=== PATIENT | male | born 1950 | race Caucasian/White ===

== ENCOUNTER → 2017-12-29 | Outpatient (CLI) | payer MEDICARE, OTHER ==
[2017-12-29 10:14] LABS: Basophils % (A) 0 %; Eosinophils # (A) 0.3 k/uL (0-0.7); Eosinophils % (A) 2 %; HCT 42.5 % (39.0-53.0); HGB 14.9 gm/dL (13.0-17.5); Lymphocytes # (A) 2.3 k/uL (1.0-4.8); Lymphocytes % (A) 19 %; MCH 30.1 pg (25.0-35.0); Monocytes % (A) 8 %; Neutrophils # (A) 8.2 k/uL (1.3-7.7); Neutrophils % (A) 68 %; Platelet Count 379 k/uL (150-450); RBC 4.95 m/uL (4.30-5.90); RDW 13.6 % (11.5-15.5); WBC 12.2 k/uL (3.8-10.6)
[2017-12-29 10:18] LABS: Appearance,Urine Clear (Clear); Bilirubin,Urine Negative (Negative); Blood,Urine Negative (Negative); Color,Urine Light Yellow; Glucose,Urine (UA) Negative (Negative); Ketones,Urine Negative (Negative); Leukocyte Esterase,Urine Negative (Negative); Nitrite,Urine Negative (Negative); PH, Urine 7.5 (5.0-8.0); Protein,Urine Negative (Negative); Specific Gravity,Urine 1.003 (1.001-1.035); Urobilinogen,Urine <2.0 mg/dL (<2.0)
[2017-12-29 10:27] LABS: ALT 36 U/L (21-72); AST 26 U/L (17-59); Albumin 4.4 g/dL (3.5-5.0); Alkaline Phosphatase 85 U/L (38-126); Anion Gap 16 mmol/L; Blood Urea Nitrogen 11 mg/dL (9-20); Calcium 10.3 mg/dL (8.4-10.2); Carbon Dioxide 29 mmol/L (22-30); Chloride 99 mmol/L (98-107); Glucose 107 mg/dL (74-99); Sodium 144 mmol/L (137-145); Total Bilirubin 0.4 mg/dL (0.2-1.3); Total Protein 6.9 g/dL (6.3-8.2)
--- NOTE | 2017-12-29 10:50 | XR ---
EXAMINATION TYPE: XR chest 2V DATE OF EXAM: 12/29/2017 COMPARISON: NONE HISTORY: Shortness of breath TECHNIQUE: Frontal and lateral views of the chest are obtained. FINDINGS: Scattered senescent parenchymal changes noted. Hyperinflation compatible with COPD. No evidence for infiltrate. No evidence for atelectasis. Heart size is stable. Mediastinal structures are stable and grossly unremarkable. No evidence for hilar prominence. Degenerative changes dorsal spine. IMPRESSION: 1. No evidence for acute pulmonary disease.
== END | disposition home or self-care (01) ==
LOC: LABWHC1 09:28
PROVIDERS: ATTEND Urology
DX: Z01.818 Encounter for other preprocedural examination (principal); R94.31 Abnormal electrocardiogram [ECG] [EKG]; I45.10 Unspecified right bundle-branch block; C64.1 Malignant neoplasm of right kidney, except renal pelvis; R35.0 Frequency of micturition; I10 Essential (primary) hypertension; R06.02 Shortness of breath; Z79.899 Other long term (current) drug therapy; Z01.812 Encounter for preprocedural laboratory examination
CPT/HCPCS: 36415; 71046; 80053; 81003; 85025; 87086; 93005

== ENCOUNTER 2018-01-05 05:43 | Inpatient (IN) | payer MEDICARE, OTHER ==
[2017-12-28 14:40] VITALS: BMI 28.8
[~2018-01-05 05:43] MED LIST: Pre Op ABX Message 1 EACH MISC MISCELLANE ONE
[2018-01-05] MEDS ORDERED: fentaNYL (PF) 50 MCG/ML 2 ML AMP IV PRN (05:49)
[2018-01-05] MEDS ORDERED: MIDAZOLAM 2 MG/2 ML VIAL IV PRN (05:49)
[2018-01-05] MEDS ORDERED: ONDANSETRON 4 MG/2 ML VIAL IVP ONE (05:49)
[2018-01-05] MEDS ORDERED: DEXAMETHASONE SOD PHOSPHATE 10 MG/ML 1 ML VIAL IV ONE (05:49)
[2018-01-05] MEDS: LACTATED RINGERS 1,000 ML IV SCH (06:47)
[2018-01-05] MEDS ORDERED: LIDOCAINE 1% 20 ML VIAL (10MG/ML) FOR IV START INTRADERMA ONE (06:47)
[2018-01-05] MEDS ORDERED: NALOXONE 0.4 MG/ML 1 ML VIAL IV PRN ×2 (07:20→07:22)
[2018-01-05] MEDS ORDERED: diphenhydrAMINE 50 MG/ML 1 ML VIAL IVP PRN (07:22)
[2018-01-05] MEDS ORDERED: ONDANSETRON 4 MG/2 ML VIAL IVP PRN (07:22)
[2018-01-05] MEDS ORDERED: GLYCOPYRROLATE 0.2 MG/ML 2 ML VIAL ONE (07:38)
[2018-01-05] MEDS ORDERED: LIDOCAINE 1% INJ 10MG/ML (20 ML MDV) ONE (07:38)
[2018-01-05] MEDS ORDERED: PROPOFOL 10 MG/ML 20 ML VIAL IV ONE (07:38)
[2018-01-05] MEDS ORDERED: fentaNYL (PF) 50 MCG/ML 2 ML AMP ONE (07:38)
[2018-01-05] MEDS ORDERED: NEOSTIGMINE 1 MG/ML 10 ML VIAL ONE (07:38)
[2018-01-05] MEDS ORDERED: SUCCINYLCHOLINE CHLORIDE 100 MG/5 ML SYR IV ONE (07:38)
[2018-01-05] MEDS ORDERED: VECURONIUM 10 MG VIAL IV ONE (07:38)
[2018-01-05] MEDS ORDERED: MIDAZOLAM 2 MG/2 ML VIAL ONE (07:38)
[2018-01-05] MEDS ORDERED: BUPIVACAINE (PF) 0.5% 31.3 ML, fentaNYL (PF) 625 MCG in SODIUM CHLORIDE 0.9% 206 ML EPIDURAL PRN (08:00)
[2018-01-05] MEDS ORDERED: GELATIN SPONGE,ABSORB (SMALL) 1 EACH SPONGE TOPICAL ONE (09:15)
[2018-01-05] MEDS ORDERED: ALBUTEROL NEBULIZED 2.5 MG/3 ML INHALATION PRN (09:38)
--- NOTE | 2018-01-05 09:48 | P.OP ---
Date of Procedure: 01/05/18 Preoperative Diagnosis: Right renal mass, probable renal cell carcinoma Postoperative Diagnosis: Same Procedure(s) Performed: Right radical nephrectomy Anesthesia: GETA, epidural Surgeon: Daniel Shetty [employer] Manager #1: Grzegorz Bartlett Estimated Blood Loss (ml): 250 Pathology: other (Kidney) Condition: stable Disposition: PACU Indications for Procedure: The patient is a 67-year-old gentleman who was evaluated with a computed tomography scan for abdominal pain. He is found to have a 6-7 cm right renal mass. The mass was consistent with a renal cell carcinoma. Due to the size and depth of the mass was recommended a radical nephrectomy. He he chose an open radical nephrectomy over laparoscopic. He chose evident done here rather than referral. He come for this procedure the risks and complications of an outlined Description of Procedure: Patient is brought to the operating suite he is given a general endotracheal anesthesia. A Lucio catheters introduced sterilely. A sterile prep and drape was administered. A right chevron incision is made. The rectus and oblique fascias are opened up. The peritoneum was opened. Retraction with the Bookwalter retractors made. The liver is inspected and shows a fatty liver but otherwise was unremarkable. The gallbladder is unremarkable. Incised the attachment of the colon and the peritoneum reflected medially. I do a Misty maneuver and reflect the duodenum medially. I exposed the vein clean the connective tissue off it. The gonadal vein is taken between 2-0 silk ties. I eventually identify the right renal vein. It is freed of adventitial around it. There are 2 renal arteries posterior to the renal vein which are identified and tied with 2-0 silk ties. I then take the renal vein between 2-0 silk ties and suture ligatures and transected. I then remove the lymph node tissue and attachments off the body wall. I move inferiorly I then take the ureter between hemoclips. Taken without gonadal vein between hemoclips. I move around the inferior portion of the kidney and drug's fascia. I freed the kidney and drug's fascia off the posterior bladder wall the lateral bladder wall. Then incised the peritoneum on the superior aspect of the kidney a. I dissect down through the subcutaneous tissue using hemoclips and ties and electrocautery to control any bleeding. At the apex of the kidney and Gerota's fascia off the vena cava the body wall and the liver. The adrenal gland comes with the specimen. The specimens delivered from the wound. Blood loss about 250 mL. I inspect the bed of the adrenal gland there is some mild oozing which and Gelfoam was placed against in the control this. At the end of the procedure blood loss about 250 mL. I'll allow the bowel to feel the right upper quadrant. The wound was closed with 3 layers of #1 Vicryl. The skin is stapled the patient awake and returned recovery room good condition. He tolerated the procedure well.
[2018-01-05] MEDS: BUPIVACAINE (PF) 0.5% 31.3 ML, fentaNYL (PF) 625 MCG in SODIUM CHLORIDE 0.9% 206 ML EPIDURAL PRN (10:32)
[2018-01-05 14:15] LABS: Calcium 9.7 mg/dL (8.4-10.2); Potassium 3.8 mmol/L (3.5-5.1)
[2018-01-05 14:19] LABS: HCT 41.3 % (39.0-53.0); HGB 14.1 gm/dL (13.0-17.5); MCHC 34.1 g/dL (31.0-37.0); MCV 88.1 fL (80.0-100.0); Mean Platelet Volume 7.1; Platelet Count 399 k/uL (150-450); RBC 4.69 m/uL (4.30-5.90); RDW 13.8 % (11.5-15.5); WBC 24.8 k/uL (3.8-10.6)
[2018-01-05] MEDS: POTASSIUM CHLORIDE ER 10 MEQ TAB.ER.PRT PO SCH (16:51)
[2018-01-05] MEDS: GABAPENTIN 300 MG CAP PO SCH ×2 (16:51→21:20)
[2018-01-05] MEDS: DEXTROSE 5%-0.45% NACL 1,000 ML IV SCH ×3 (16:51→21:20)
[2018-01-05] MEDS: BACLOFEN 10 MG TAB PO SCH ×2 (16:51→21:20)
[2018-01-05] MEDS ORDERED: ALLOPURINOL 100 MG TAB PO SCH (21:00)
[2018-01-05] MEDS: traZODone HCL 100 MG TAB PO SCH (21:20)
[2018-01-06] MEDS: LACTATED RINGERS 1,000 ML IV SCH (05:07)
[2018-01-06] MEDS: BUPIVACAINE (PF) 0.5% 31.3 ML, fentaNYL (PF) 625 MCG in SODIUM CHLORIDE 0.9% 206 ML EPIDURAL PRN (07:43)
[2018-01-06] MEDS: amLODIPine 10 MG TAB PO SCH (08:00)
[2018-01-06] MEDS: ATENOLOL 50 MG TAB PO SCH (08:00)
[2018-01-06] MEDS: FLUoxetine HCL 20 MG CAP PO SCH (08:00)
[2018-01-06] MEDS: BACLOFEN 10 MG TAB PO SCH ×3 (08:00→20:43)
[2018-01-06] MEDS: ALLOPURINOL 300 MG TAB PO SCH (08:00)
[2018-01-06] MEDS: POTASSIUM CHLORIDE ER 10 MEQ TAB.ER.PRT PO SCH ×2 (08:00→17:13)
[2018-01-06] MEDS: THIAMINE 100 MG TAB PO SCH (08:00)
[2018-01-06] MEDS: HYDROCHLOROTHIAZIDE 50 MG TAB PO SCH (08:00)
[2018-01-06] MEDS: PANTOPRAZOLE 40 MG TABLET PO SCH (08:00)
[2018-01-06] MEDS: GABAPENTIN 300 MG CAP PO SCH ×3 (08:00→20:43)
--- NOTE | 2018-01-06 08:38 | P.PN ---
Progress Note - Text Progress Note Date: 01/06/18 The patient is comfortable and afebrile. His blood pressure is 123/64. He denies any cough or shortness of breath and is using incentive spirometry as directed. He says that he is hungry and would like to try eating. His urine is clear. The patient's urethral catheter was removed approximately 15 minutes ago. Chest-clear bilaterally Cardiac-regular rhythm-no murmur Abdomen-incision is dry and uninflamed. Week bowel sounds are present. Impression: The patient appears to be doing very well 1 day following right radical nephrectomy. His epidural will remain in place and hopefully he will be able to void without difficulty. Bladder scans will be done to ensure this. He is aware that if he is unable to void a catheter will need to be reinserted. The patient will be tried on clear liquids and if he tolerates this he may be able to be advanced his diet later in the day.
[2018-01-06] MEDS: DEXTROSE 5%-0.45% NACL 1,000 ML IV SCH ×3 (11:56→18:25)
--- NOTE | 2018-01-06 13:25 | P.PAINPG ---
Subjective Progress Note Date: 01/06/18 Principal diagnosis: Acute postoperative pain Postoperative day # 1 status post right nephrectomy. epidural catheter placement for postoperative analgesia, patient doing well epidural site okay, patient currently on combination of epidural infusion solution of bupivacaine 0.0625% and fentanyl 2.5 micrograms per mL the infusion rate at 8 ml per hour , patient had no motor deficit epidural site okay, pain adequately controlled, VAS 0/10 at rest and 0/10 with movement. No supplemental pain medications given , we'll continue the current management Objective - Vital Signs Vital signs: Vital Signs Temp 98.0 F 01/06/18 07:00 Pulse 65 01/06/18 07:00 Resp 16 01/06/18 07:00 BP 123/64 01/06/18 07:00 Pulse Ox 93 L 01/06/18 07:00 Intake & Output 01/05/18 01/06/18 01/06/18 18:59 06:59 18:59 Intake Total 1924.1 Output Total 530 1500 700 Balance 1394.1 -1500 -700 Weight 83.461 kg 83.461 kg Intake: IV 1574.1 Intake, IV Titration 350 Amount Dextrose 5%-0.45% NaCl 1, 350 000 ml @ 125 mls/hr IV . Q8H [facility] Rx#:[id number] Output: Urine 280 1500 700 Uretheral (Lucio) 700 Stool 0 Estimated Blood Loss 250 Other: Voiding Method Indwelling Catheter Indwelling Catheter Indwelling Catheter - Labs CBC & Chem 7: 01/05/18 13:26 01/05/18 13:26 Labs: Abnormal Lab Results - Last 24 Hours (Table) 01/05/18 01/05/18 Range/Units 13:26 13:26 WBC 24.8 H (3.8-10.6) k/uL BUN 22 H (9-20) mg/dL Creatinine 1.30 H (0.66-1.25) mg/dL Glucose 136 H (74-99) mg/dL Assessment and Plan Assessment: Acute post operative pain Plan: Continue with current settings. Ambulate as tolerated with assistance PQRS Measure Charge Sheet PQRS Narrative: Smoking Status Former smoker Blood Pressure [Right Arm 123/64 Supine] Pain Intensity [Lower Back] 0 Pain Intensity 0 Pain Scale Used [Lower Back] Numeric (1 - 10) Pain Scale Used Numeric (1 - 10) Scale Used Numeric (1 - 10) Home Medications: Ambulatory Orders Albuterol Inhaler [Ventolin Hfa Inhaler] 1 - 2 puff INHALATION RT-QID PRN Allopurinol [Zyloprim] 100 mg PO BID 12/28/17 Allopurinol [Zyloprim] 300 mg PO DAILY 12/28/17 Atenolol [Tenormin] 50 mg PO DAILY 12/28/17 Baclofen [Lioresal] 10 mg PO TID 12/28/17 Cetirizine HCl [Zyrtec] 10 mg PO DAILY 12/28/17 FLUoxetine HCL [PROzac] 20 mg PO DAILY 12/28/17 Gabapentin [Neurontin] 300 mg PO TID 12/28/17 HYDROcodone/APAP 5-325MG [[place] 5-325] 1 tab PO Q4H PRN 12/28/17 Hydrochlorothiazide [Hydrodiuril] 50 mg PO DAILY 12/28/17 Metabolism Support 250 mg PO DAILY 12/28/17 Multivitamins, Thera [Multivitamin (formulary)] 1 tab PO DAILY 12/28/17 Omeprazole [PriLOSEC] 20 mg PO AC-BRKFST 12/28/17 Potassium Chloride ER [K-Dur 10] 10 meq PO BID 12/28/17 Rosuvastatin [Crestor] 10 mg PO DAILY 12/28/17 Thiamine HCl [Vitamin B-1] 100 mg PO DAILY 12/28/17 amLODIPine [Norvasc] 10 mg PO DAILY 12/28/17 traZODone HCL [Desyrel] 100 mg PO HS 12/28/17 Controlled Substance Measures - Controlled Substance Measures Is patient prescribed a controlled substance at discharge?: No If prescribed controlled substance>3 days was MAPS reviewed?: No When asked, does pt state using other controlled substances?: No
[2018-01-06] MEDS: traZODone HCL 100 MG TAB PO SCH (20:43)
[2018-01-06 23:37] LABS: Glucose,Whole Blood 131 mg/dL (75-99)
[2018-01-07] MEDS: DEXTROSE 5%-0.45% NACL 1,000 ML IV SCH ×2 (00:15→09:45)
[2018-01-07] MEDS: LACTATED RINGERS 1,000 ML IV SCH (00:16)
[2018-01-07 01:28] LABS: Glucose,Whole Blood 212 mg/dL (75-99)
[2018-01-07] MEDS: GABAPENTIN 300 MG CAP PO SCH ×3 (08:35→20:38)
[2018-01-07] MEDS: amLODIPine 10 MG TAB PO SCH (08:36)
[2018-01-07] MEDS: ATENOLOL 50 MG TAB PO SCH (08:36)
[2018-01-07] MEDS: POTASSIUM CHLORIDE ER 10 MEQ TAB.ER.PRT PO SCH ×2 (08:36→17:31)
[2018-01-07] MEDS: ALLOPURINOL 300 MG TAB PO SCH (08:36)
[2018-01-07] MEDS: BACLOFEN 10 MG TAB PO SCH ×3 (08:36→20:38)
[2018-01-07] MEDS: PANTOPRAZOLE 40 MG TABLET PO SCH (08:36)
[2018-01-07] MEDS: THIAMINE 100 MG TAB PO SCH (08:38)
[2018-01-07] MEDS: HYDROCHLOROTHIAZIDE 50 MG TAB PO SCH (08:38)
[2018-01-07] MEDS: FLUoxetine HCL 20 MG CAP PO SCH (08:38)
[2018-01-07] MEDS ORDERED: Acetaminophen-Codeine 300-30mg TAB PO PRN (08:59)
--- NOTE | 2018-01-07 08:59 | P.PN ---
Progress Note - Text Progress Note Date: 01/07/18 The patient is afebrile and normotensive. His epidural catheter was stopped early this morning as he was slightly confused and says that he was having weakness in his legs. Since then he has remained fairly comfortable. He is tolerating clear liquids and would like to begin a regular diet. He has no shortness of breath. He is passing flatus. He is voiding without difficulty. Abdomen: Incision is uninflamed. Impression: The patient continues to improve following his right radical nephrectomy. His diet will be advanced and his epidural catheter will be removed. He will probably be discharged in the morning.
[2018-01-07] MEDS: traZODone HCL 100 MG TAB PO SCH (20:36)
[2018-01-07 20:53] LABS: Hemoglobin A1C 6.1 % (4.0-6.0)
[2018-01-08] MEDS: LACTATED RINGERS 1,000 ML IV SCH (05:24)
--- NOTE | 2018-01-08 07:41 | P.DS ---
Providers Date of admission: 01/05/18 05:43 Expected date of discharge: 01/08/18 Attending physician: Daniel Shetty Primary care physician: Khanh Briggs [facility] Course: The patient is a 67-year-old male with a large right upper pole renal mass consistent with renal cell carcinoma. The patient was admitted for the purpose of right radical nephrectomy. The procedure was performed on the date of admission under combined general and epidural anesthesia. The patient had no problems intraoperatively and remained comfortable with the epidural catheter postop. His urethral catheter was removed on the first day postop and the epidural catheter was removed on the second day postop. At the time of discharge the patient was comfortable on oral analgesics. He was fully ambulatory and tolerating a regular diet and passing flatus and bowel movements. His incision appeared to be healing well. The patient's random glucose was elevated between 160 and 212 postoperatively. Hemoglobin A1c was 6.1. It was recommended that the patient discuss the possibility of diabetes with Dr. Briggs when he is seen by him on 01/12. Procedures: Right radical nephrectomy for Patient Condition at Discharge: Good Plan - Discharge Summary Discharge Rx Participant: No New Discharge Prescriptions: No Action Albuterol Inhaler [Ventolin Hfa Inhaler] 1 - 2 puff INHALATION RT-QID PRN PRN Reason: COPD Allopurinol [Zyloprim] 300 mg PO DAILY Allopurinol [Zyloprim] 100 mg PO BID amLODIPine [Norvasc] 10 mg PO DAILY Atenolol [Tenormin] 50 mg PO DAILY Baclofen [Lioresal] 10 mg PO TID Cetirizine HCl [Zyrtec] 10 mg PO DAILY FLUoxetine HCL [PROzac] 20 mg PO DAILY Gabapentin [Neurontin] 300 mg PO TID Hydrochlorothiazide [Hydrodiuril] 50 mg PO DAILY HYDROcodone/APAP 5-325MG [[place] 5-325] 1 tab PO Q4H PRN PRN Reason: Pain Metabolism Support 250 mg PO DAILY Multivitamins, Thera [Multivitamin (formulary)] 1 tab PO DAILY Omeprazole [PriLOSEC] 20 mg PO AC-BRKFST Potassium Chloride ER [K-Dur 10] 10 meq PO BID Rosuvastatin [Crestor] 10 mg PO DAILY Thiamine HCl [Vitamin B-1] 100 mg PO DAILY traZODone HCL [Desyrel] 100 mg PO HS Discharge Medication List Albuterol Inhaler [Ventolin Hfa Inhaler] 1 - 2 puff INHALATION RT-QID PRN [History] Allopurinol [Zyloprim] 100 mg PO BID 12/28/17 [History] Allopurinol [Zyloprim] 300 mg PO DAILY 12/28/17 [History] Atenolol [Tenormin] 50 mg PO DAILY 12/28/17 [History] Baclofen [Lioresal] 10 mg PO TID 12/28/17 [History] Cetirizine HCl [Zyrtec] 10 mg PO DAILY 12/28/17 [History] FLUoxetine HCL [PROzac] 20 mg PO DAILY 12/28/17 [History] Gabapentin [Neurontin] 300 mg PO TID 12/28/17 [History] HYDROcodone/APAP 5-325MG [[place] 5-325] 1 tab PO Q4H PRN 12/28/17 [History] Hydrochlorothiazide [Hydrodiuril] 50 mg PO DAILY 12/28/17 [History] Metabolism Support 250 mg PO DAILY 12/28/17 [History] Multivitamins, Thera [Multivitamin (formulary)] 1 tab PO DAILY 12/28/17 [History ] Omeprazole [PriLOSEC] 20 mg PO AC-BRKFST 12/28/17 [History] Potassium Chloride ER [K-Dur 10] 10 meq PO BID 12/28/17 [History] Rosuvastatin [Crestor] 10 mg PO DAILY 12/28/17 [History] Thiamine HCl [Vitamin B-1] 100 mg PO DAILY 12/28/17 [History] amLODIPine [Norvasc] 10 mg PO DAILY 12/28/17 [History] traZODone HCL [Desyrel] 100 mg PO HS 12/28/17 [History] Follow up Appointment(s)/Referral(s): Daniel Shetty MD [STAFF PHYSICIAN] - 1 Week Discharge Disposition: HOME SELF-CARE Pending Studies Pending Results: The pathology report was pending at the time of discharge.
[2018-01-08 07:48] VITALS: BP 176/79; PULSE 66; TEMP 98.1
[2018-01-08 08:42] VITALS: RESP 16
[2018-01-08] MEDS: GABAPENTIN 300 MG CAP PO SCH (09:03)
[2018-01-08] MEDS: ATENOLOL 50 MG TAB PO SCH (09:03)
[2018-01-08] MEDS: HYDROCHLOROTHIAZIDE 50 MG TAB PO SCH (09:03)
[2018-01-08] MEDS: THIAMINE 100 MG TAB PO SCH (09:03)
[2018-01-08] MEDS: POTASSIUM CHLORIDE ER 10 MEQ TAB.ER.PRT PO SCH (09:04)
[2018-01-08] MEDS: FLUoxetine HCL 20 MG CAP PO SCH (09:04)
[2018-01-08] MEDS: amLODIPine 10 MG TAB PO SCH (09:04)
[2018-01-08] MEDS: ALLOPURINOL 300 MG TAB PO SCH (09:04)
[2018-01-08] MEDS: PANTOPRAZOLE 40 MG TABLET PO SCH (09:04)
[2018-01-08] MEDS: BACLOFEN 10 MG TAB PO SCH (09:04)
[2018-01-08] MEDS: DEXTROSE 5%-0.45% NACL 1,000 ML IV SCH (09:05)
== END 2018-01-08 12:00 | disposition home or self-care (01) | DRG 658 ==
LOC: 2ORMAIN 05:43 → 3SUR 09:49
PROVIDERS: ADMIT Urology; ATTEND Urology
PROC: 0GT30ZZ Resection of Right Adrenal Gland, Open Approach (ICD-10-PCS; 2018-01-05)
PROC: 0TT00ZZ Resection of Right Kidney, Open Approach (ICD-10-PCS; principal; 2018-01-05 07:30)
DX: C64.1 Malignant neoplasm of right kidney, except renal pelvis (principal); J44.9 Chronic obstructive pulmonary disease, unspecified; E11.65 Type 2 diabetes mellitus with hyperglycemia; E78.00 Pure hypercholesterolemia, unspecified; G89.18 Other acute postprocedural pain; E78.5 Hyperlipidemia, unspecified; I10 Essential (primary) hypertension; M19.91 Primary osteoarthritis, unspecified site; K21.9 Gastro-esophageal reflux disease without esophagitis; G47.00 Insomnia, unspecified; Z79.899 Other long term (current) drug therapy; Z87.891 Personal history of nicotine dependence; Z91.018 Allergy to other foods; Z86.010 Personal history of colon polyps; Z83.3 Family history of diabetes mellitus; Z80.0 Family history of malignant neoplasm of digestive organs; Z84.1 Family history of disorders of kidney and ureter
CPT/HCPCS: 80048; 83036; 85027; 86850; 86900; 86901; 88305; 88307; 88341; 88342; 94640

== ENCOUNTER → 2018-07-20 | Outpatient (CLI) | payer MEDICARE, OTHER ==
[2018-07-20 15:50] LABS: Albumin 4.7 g/dL (3.80-4.90); Albumin/Globulin Ratio 2.94 (1.20-2.10); Anion Gap 8.9 mmol/L (4.00-12.00); Calcium 9.6 mg/dL (8.7-10.3); Carbon Dioxide 29.1 mmol/L (21.6-31.8); Globulin 1.6 g/dL (2.1-3.7); Total Bilirubin 0.3 mg/dL (0.3-1.2); Total Protein 6.3 g/dL (6.2-8.2)
--- NOTE | 2018-07-20 16:41 | XR ---
EXAMINATION TYPE: XR chest 2V DATE OF EXAM: 07/20/2018 COMPARISON: 12/29/2017 INDICATION: Renal cancer TECHNIQUE: Frontal and lateral views of the chest are obtained. FINDINGS: The heart size is normal. The pulmonary vasculature is normal. The lungs are clear. Scoliosis is through the thoracic spine. IMPRESSION: 1. No acute pulmonary process.
== END | disposition home or self-care (01) ==
LOC: LABWHC1 09:28
PROVIDERS: ATTEND Urology
DX: C64.9 Malignant neoplasm of unspecified kidney, except renal pelvis (principal)
CPT/HCPCS: 36415; 71046; 80053

== ENCOUNTER → 2018-12-21 | Outpatient (CLI) | payer MEDICARE, OTHER ==
--- NOTE | 2018-12-21 11:08 | MR ---
EXAMINATION TYPE: MR brain wo con DATE OF EXAM: 12/21/2018 COMPARISON: NONE HISTORY: Vertebro-basilar artery syndrome, loss of balance T1-weighted sagittal, T2, FLAIR, and diffusion axial, and T2 coronal coronal views of the brain are s ubmitted. There is no evidence of acute ischemia. The ventricles, basal cisterns, and sulci overlying the conv exities are consistent with the patient's age. There is no mass effect. Sella turcica has a normal appearance. No cerebellopontine angle mass. There are changes of chronic sinusitis. Cerebellar tonsils are low-ly ing in position at the level the foramen magnum. There are a few scattered focal areas of abnormal white matter signal and confluent areas of abnormal white matter signal bilaterally. Focal area of abnormal signal involving the basal ganglia and thala mus may be related to prominent Virchow-John spaces or tiny lacunar infarcts. IMPRESSION: 1. Nonspecific white matter changes correlate for remote microvascular ischemia favored over demyelin ating process. 2. Cerebellar tonsils low-lying in position at the level the foramen magnum. 3. No evidence of acute ischemia.
--- NOTE | 2018-12-21 11:20 | MR ---
EXAMINATION TYPE: MR angio neck wo con DATE OF EXAM: 12/21/2018 COMPARISON: HISTORY: Vertebro-basilar artery syndrome, loss of balance Standard multiplanar, multisequence MRI departmental protocol Multiplanar, multisequence images MRA were acquired. FINDINGS: Exam is limited by motion artifact. Grossly the left vertebral artery is slightly dominant. Vertebrobasilar system is patent. Visualized common carotid arteries are patent. Left carotid bifurcation widely patent. There is atherosclerotic change involving the right carotid bifurcation the proximal 50% stenosis. Re commend follow-up carotid ultrasound given the limitation of the exam and motion artifact. IMPRESSION: Limited exam due to motion demonstrates the vertebrobasilar system patent. There is atherosclerotic c hange right carotid bifurcation. Due to motion artifact assessment is limited. Suspect approximately 50% stenosis. Recommend follow-up carotid ultrasound given limitation of this exam.
== END ==
LOC: RADMRIMAIN 09:53
PROVIDERS: ATTEND Psychiatry & Neurology Neurology
DX: R90.89 Other abnormal findings on diagnostic imaging of central nervous system (principal); R94.02 Abnormal brain scan; I65.21 Occlusion and stenosis of right carotid artery
CPT/HCPCS: 70547; 70551

== ENCOUNTER → 2019-01-16 | Outpatient (CLI) | payer MEDICARE, OTHER ==
--- NOTE | 2019-01-16 15:42 | CT ---
EXAMINATION TYPE: CT abdomen wo con DATE OF EXAM: 01/16/2019 HISTORY: Renal Cancer CT DLP: 454.7 mGycm. Automated Exposure Control for Dose Reduction was Utilized. TECHNIQUE: CT scan of the abdomen is performed without oral or IV contrast. COMPARISON: Outside CT abdomen and pelvis study December 11, 2017 FINDINGS: Within the limitations of a non-contrast study, the following observations are made. LUNG BASES: Linear scarring right middle lobe just above diaphragm is redemonstrated. Coronary artery calcification distal RCA distribution is again seen LIVER/GB: No significant abnormality is appreciated. PANCREAS: No significant abnormality is seen. SPLEEN: No significant abnormality is seen. ADRENALS: No significant abnormality is seen. KIDNEYS: Right kidney is surgically absent. Nephrectomy clips are now present at right renal bed. BOWEL: Normal gas-filled appendix extends superior medially from cecum which is not completely imaged . There is no suspicious small or large bowel dilatation. LYMPH NODES: No greater than 1cm abdominal lymph nodes are appreciated. OSSEOUS STRUCTURES: Moderate disc space narrowing L4-L5 level is present. OTHER: Moderate calcified plaque of the distal aorta extends into branch vessels. IMPRESSION: Interval total right-sided nephrectomy. No suspicious residual or new mass identified.
== END | disposition home or self-care (01) ==
LOC: RADCTMAIN 13:26
PROVIDERS: ATTEND Urology
DX: D41.01 Neoplasm of uncertain behavior of right kidney (principal); Z90.5 Acquired absence of kidney; Z91.018 Allergy to other foods
CPT/HCPCS: 74150

== ENCOUNTER → 2019-01-23 | Outpatient (CLI) | payer MEDICARE, OTHER ==
--- NOTE | 2019-01-23 16:18 | US ---
EXAMINATION TYPE: US carotid duplex BILAT DATE OF EXAM: 01/23/2019 COMPARISON: None CLINICAL HISTORY: 68-year-old male R26.81 Unsteady gait / I65.21 Stenosis. Loss of balance per patien t FINDINGS: EXAM MEASUREMENTS: RIGHT: Peak Systolic Velocity (PSV) cm/sec ----- Right CCA: 74.0 ----- Right ICA: 85.4 ----- Right ECA: 98.0 ICA/CCA ratio: 1.2 RIGHT: End Diastole cm/sec ----- Right CCA: 15.9 ----- Right ICA: 18.4 ----- Right ECA: 21.0 LEFT: Peak Systolic Velocity (PSV) cm/sec ----- Left CCA: 69.4 ----- Left ICA: 65.6 ----- Left ECA: 85.0 ICA/CCA ratio: 0.9 LEFT: End Diastole cm/sec ----- Left CCA: 21.5 ----- Left ICA: 24.1 ----- Left ECA: 18.9 VERTEBRALS (direction of flow): Right Vertebral: Antegrade Left Vertebral: Antegrade Rhythm: Normal Sonography notes: Moderate, mixed intimal wall changes are noted in bilateral carotid systems, but PS V is wnl bilaterally. IMPRESSION: Moderate atherosclerotic changes at both bifurcations but without hemodynamically significant stenosi s appreciated in either internal carotid artery. Criteria for Assigning % of Stenosis / Diameter reduction (Estimation based on the indirect measurements of the internal carotid artery velocities (ICA PSV). 1. Normal (no stenosis)=ICA PSV < 125 cm/s: ratio < 2.0: ICA EDV<40 cm/s. 2. Less than 50% stenosis=ICA PSV < 125 cm/s: ratio < 2.0: ICA EDV<40 cm/s. 3. 50 to 69% stenosis=ICA PSV of 125 to 230 cm/s: ration 2.0 ? 4.0: ICA EDV 40-100 cm/s. 4. Greater than 70% stenosis to near occlusion= ICA PSV > 230 cm/s: ratio > 4.0: ICA EDV > 100 cm/s. 5. Near occlusion= ICA PSV velocities may be low or undetectable: variable ratio and ICA EDV. 6. Total occlusion=unable to detect flow.
--- NOTE | 2019-01-23 21:32 | MR ---
EXAMINATION TYPE: MR lumbar spine wo con DATE OF EXAM: 01/23/2019 COMPARISON: CT abdomen January 16, 2019 HISTORY: Unsteady gait, LBP radiates into lt buttock, prior surgery TECHNIQUE: Multiplanar, multisequence imaging of the lumbar spine is performed without IV contrast. FINDINGS: Sagittal images of the lumbar spine show vertebral body heights and alignment to remain sat isfactory. Multilevel disc desiccation is present. There is moderate to advanced disc space narrowing with heterogeneous motor type II endplate changes posterior L4-L5 level. The conus medullaris is nor mal in position and signal ending mid L1 level. Axial images show the T12-L1 level to appear within normal limits. Axial images at the L1-L2 level show mild broad disc bulge mildly effacing anterior thecal sac and ex tends 27, bilateral neural foramina are patent. Axial images at the L2-L3 and the L3-L4 levels are felt within normal limits. Axial images at the L4-L5 level shows moderate broad-based disc bulge with broad-based left foraminal /lateral disc protrusion component. There is moderate facet degenerative change and ligamentum flavum hypertrophy. Diffuse effacement of the anterior and posterior lateral thecal sac. There is moderate left-sided anterior inferior neural foraminal narrowing encroaching the inferior left L4 nerve sagitt al image 4 and axial image 10. Axial images at the L5-S1 level shows mild to moderate facet degenerative changes bilaterally. Spinal canal is preserved. Bilateral neuroforamina are patent. Left kidney is surgically absent. IMPRESSION: Multilevel degenerative changes most prominent at the L4-L5 level where eccentric disc he rniation encroaches on the exiting left L4 nerve. Further details as noted above.
== END ==
LOC: RADMRIMAIN 14:32
PROVIDERS: ATTEND Psychiatry & Neurology Neurology
DX: R26.81 Unsteadiness on feet (principal); M51.26 Other intervertebral disc displacement, lumbar region
CPT/HCPCS: 72148; 93880

== ENCOUNTER → 2019-07-05 | Outpatient (CLI) | payer MEDICARE, OTHER ==
[2019-07-05 12:19] LABS: Appearance,Urine Clear (Clear); Bilirubin,Urine Negative (Negative); Blood,Urine Negative (Negative); Color,Urine Light Yellow; Glucose,Urine (UA) Negative (Negative); Ketones,Urine Negative (Negative); Leukocyte Esterase,Urine Negative (Negative); Nitrite,Urine Negative (Negative); PH, Urine 7.5 (5.0-8.0); Protein,Urine Negative (Negative); Specific Gravity,Urine 1.005 (1.001-1.035); Urobilinogen,Urine <2.0 mg/dL (<2.0)
[2019-07-05 12:24] LABS: Basophils % (A) 0 %; Eosinophils # (A) 0.3 k/uL (0-0.7); Eosinophils % (A) 2 %; HCT 41.4 % (39.0-53.0); HGB 14.1 gm/dL (13.0-17.5); Lymphocytes # (A) 2.6 k/uL (1.0-4.8); Lymphocytes % (A) 19 %; MCH 31.5 pg (25.0-35.0); MCV 92.7 fL (80.0-100.0); Mean Platelet Volume 6.5; Monocytes # (A) 0.9 k/uL (0-1.0); Monocytes % (A) 6 %; Neutrophils # (A) 9.8 k/uL (1.3-7.7); Neutrophils % (A) 70 %; Platelet Count 334 k/uL (150-450); RBC 4.47 m/uL (4.30-5.90); RDW 13.4 % (11.5-15.5)
[2019-07-05 12:29] LABS: INR 0.9 (<1.2); Partial Thromboplastin Time 25.5 sec (22.0-30.0)
[2019-07-05 12:43] LABS: Calcium 9.9 mg/dL (8.4-10.2); Potassium 4.1 mmol/L (3.5-5.1)
== END | disposition home or self-care (01) ==
LOC: LABWHC1 10:53
PROVIDERS: ATTEND Orthopaedic Surgery Orthopaedic Surgery of the Spine
DX: Z01.812 Encounter for preprocedural laboratory examination (principal); M48.02 Spinal stenosis, cervical region
CPT/HCPCS: 36415; 80048; 81003; 85025; 85610; 85730

== ENCOUNTER → 2019-08-29 | Outpatient (CLI) | payer MEDICARE, OTHER ==
--- NOTE | 2019-08-29 08:45 | XR ---
EXAMINATION TYPE: XR chest 2V DATE OF EXAM: 08/29/2019 COMPARISON: 07/20/2018 HISTORY: Shortness of breath TECHNIQUE: Frontal and lateral views of the chest are obtained. FINDINGS: Scattered senescent parenchymal changes noted. Hyperinflation compatible with COPD. No evidence for infiltrate. No evidence for atelectasis. Heart size is stable. Mediastinal structures are stable and grossly unremarkable. No evidence for hilar prominence. Degenerative changes dorsal spine. IMPRESSION: 1. No evidence for acute pulmonary disease.
[2019-08-29 08:49] LABS: Basophils # (A) 0.1 k/uL (0-0.2); Basophils % (A) 0 %; Eosinophils # (A) 0.5 k/uL (0-0.7); Eosinophils % (A) 4 %; HCT 40.8 % (39.0-53.0); HGB 13.6 gm/dL (13.0-17.5); Lymphocytes # (A) 2.6 k/uL (1.0-4.8); Lymphocytes % (A) 20 %; MCH 30.7 pg (25.0-35.0); MCHC 33.5 g/dL (31.0-37.0); MCV 91.8 fL (80.0-100.0); Mean Platelet Volume 7.9; Monocytes % (A) 8 %; Neutrophils # (A) 8.6 k/uL (1.3-7.7); Neutrophils % (A) 66 %; Platelet Count 345 k/uL (150-450); RBC 4.44 m/uL (4.30-5.90); RDW 13.6 % (11.5-15.5); WBC 12.9 k/uL (3.8-10.6)
[2019-08-29 09:12] LABS: Appearance,Urine Clear (Clear); Bilirubin,Urine Negative (Negative); Blood,Urine Negative (Negative); Color,Urine Light Yellow; Glucose,Urine (UA) Negative (Negative); Ketones,Urine Negative (Negative); Leukocyte Esterase,Urine Negative (Negative); Nitrite,Urine Negative (Negative); PH, Urine 7.5 (5.0-8.0); Protein,Urine Negative (Negative); Specific Gravity,Urine 1.005 (1.001-1.035); Urobilinogen,Urine <2.0 mg/dL (<2.0)
[2019-08-29 15:43] LABS: % Iron Saturation 16.51 (15.00-50.00); African American GFR (CKD) 58.6 (60.0-200.0); Albumin 4.7 g/dL (3.80-4.90); Anion Gap 8.2 mmol/L (4.00-12.00); BUN/Creat Ratio 7.86 Ratio (12.00-20.00); Calcium 9.7 mg/dL (8.7-10.3); Carbon Dioxide 33.8 mmol/L (21.6-31.8); Magnesium 1.7 mg/dL (1.5-2.4); Non-African American GFR(CKD) 50.5 (60.0-200.0); Phosphorus 2.3 mg/dL (2.4-5.1); Potassium 3.9 mmol/L (3.5-5.5)
[2019-08-29 15:53] LABS: Uric Acid 5.2 mg/dL (3.7-8.7)
[2019-08-29 16:04] LABS: Ferritin 49.7 ng/mL (22.0-322.0)
[2019-08-29 18:13] LABS: Creatinine,Urine Random 32.2 mg/dL; Total Protein,Urine Random <4.0 mg/dL (0.0-13.5)
== END | disposition home or self-care (01) ==
LOC: LABWHC1 08:04
PROVIDERS: ATTEND Internal Medicine Nephrology
DX: C64.1 Malignant neoplasm of right kidney, except renal pelvis (principal); E55.9 Vitamin D deficiency, unspecified; N25.81 Secondary hyperparathyroidism of renal origin; M10.9 Gout, unspecified; N39.0 Urinary tract infection, site not specified; D63.1 Anemia in chronic kidney disease; N18.3 Chronic kidney disease, stage 3 (moderate); R80.9 Proteinuria, unspecified
CPT/HCPCS: 36415; 71046; 80048; 81003; 82040; 82306; 82570; 82728; 83540; 83550; 83735; 83970; 84100; 84156; 84550; 85025

== ENCOUNTER → 2019-11-27 | Outpatient (CLI) | payer MEDICARE, BC ==
[2019-11-27 09:23] LABS: Basophils % (A) 0 %; Eosinophils # (A) 0.4 k/uL (0-0.7); Eosinophils % (A) 3 %; HCT 41.6 % (39.0-53.0); HGB 14.1 gm/dL (13.0-17.5); Lymphocytes # (A) 2.5 k/uL (1.0-4.8); Lymphocytes % (A) 17 %; MCH 31.4 pg (25.0-35.0); MCV 92.3 fL (80.0-100.0); Mean Platelet Volume 8.3; Monocytes # (A) 1.2 k/uL (0-1.0); Monocytes % (A) 8 %; Neutrophils % (A) 69 %; Platelet Count 296 k/uL (150-450); RDW 13.2 % (11.5-15.5); WBC 14.4 k/uL (3.8-10.6)
[2019-11-27 10:48] LABS: Appearance,Urine Clear (Clear); Bilirubin,Urine Negative (Negative); Blood,Urine Negative (Negative); Color,Urine Yellow; Glucose,Urine (UA) Negative (Negative); Ketones,Urine Negative (Negative); Leukocyte Esterase,Urine Negative (Negative); Nitrite,Urine Negative (Negative); PH, Urine 7.5 (5.0-8.0); Protein,Urine Negative (Negative); Specific Gravity,Urine 1.006 (1.001-1.035); Urobilinogen,Urine <2.0 mg/dL (<2.0)
[2019-11-27 11:23] LABS: Protein/Creatinine Ratio,Urine 0.272
[2019-11-27 16:59] LABS: Ferritin 116.4 ng/mL (22.0-322.0)
[2019-11-27 17:08] LABS: % Iron Saturation 32.01 (15.00-50.00); African American GFR (CKD) 58.6 (60.0-200.0); Albumin 4.5 g/dL (3.80-4.90); Anion Gap 10.1 mmol/L (4.00-12.00); BUN/Creat Ratio 10.71 Ratio (12.00-20.00); Calcium 9.7 mg/dL (8.7-10.3); Carbon Dioxide 32.9 mmol/L (21.6-31.8); Magnesium 1.7 mg/dL (1.5-2.4); Non-African American GFR(CKD) 50.5 (60.0-200.0); Phosphorus 2.3 mg/dL (2.4-5.1); Potassium 3.6 mmol/L (3.5-5.5); Uric Acid 5.1 mg/dL (3.7-8.7)
[2019-11-28 09:52] LABS: Free Kappa Lt Chain Qnt, Urine 0.993 mg/dL (0.140-2.420)
[2019-11-28 10:46] LABS: Free Lambda Lt Chain Qt, Urine 0.144 mg/dL (0.020-0.670)
== END | disposition home or self-care (01) ==
LOC: LABWHC1 08:14
PROVIDERS: ATTEND Nurse Practitioner Family
DX: N39.0 Urinary tract infection, site not specified (principal); E79.0 Hyperuricemia without signs of inflammatory arthritis and tophaceous disease; N18.3 Chronic kidney disease, stage 3 (moderate); D63.1 Anemia in chronic kidney disease; E55.9 Vitamin D deficiency, unspecified; N25.81 Secondary hyperparathyroidism of renal origin; R80.9 Proteinuria, unspecified
CPT/HCPCS: 36415; 80048; 81003; 82040; 82306; 82570; 82728; 83540; 83550; 83735; 83883; 83970; 84100; 84156; 84550; 85025; 86335

== ENCOUNTER → 2019-12-23 | Outpatient (CLI) | payer MEDICARE, BC ==
[2019-12-23 09:14] LABS: Appearance,Urine Clear (Clear); Bilirubin,Urine Negative (Negative); Blood,Urine Negative (Negative); Color,Urine Yellow; Glucose,Urine (UA) Negative (Negative); Ketones,Urine Negative (Negative); Leukocyte Esterase,Urine Negative (Negative); Nitrite,Urine Negative (Negative); PH, Urine 6.5 (5.0-8.0); Protein,Urine Trace (Negative); Specific Gravity,Urine 1.021 (1.001-1.035)
--- NOTE | 2019-12-23 09:24 | XR ---
EXAMINATION TYPE: XR chest 2V DATE OF EXAM: 12/23/2019 COMPARISON: 08/29/2019 HISTORY: Presurgical evaluation. TECHNIQUE: Frontal and lateral views of the chest are obtained. FINDINGS: There is no focal air space opacity, pleural effusion, or pneumothorax seen. The cardiac silhouette size is within normal limits. Tortuosity of the thoracic aorta is The osseous structures are intact. Mild multilevel degenerative change of the thoracic spine and diffuse osseous demineraliz ation. IMPRESSION: No acute cardiopulmonary process.
[2019-12-23 09:28] LABS: INR 0.9 (<1.2); Partial Thromboplastin Time 24.7 sec (22.0-30.0); Prothrombin Time 9.8 sec (9.0-12.0)
[2019-12-23 09:31] LABS: Calcium 9.4 mg/dL (8.4-10.2); Potassium 3.6 mmol/L (3.5-5.1)
[2019-12-23 09:49] LABS: HCT 42.9 % (39.0-53.0); HGB 14.2 gm/dL (13.0-17.5); MCH 30.6 pg (25.0-35.0); MCV 92.6 fL (80.0-100.0); Mean Platelet Volume 8.4; Platelet Count 285 k/uL (150-450); RBC 4.63 m/uL (4.30-5.90); RDW 13.4 % (11.5-15.5); WBC 12.9 k/uL (3.8-10.6)
[2019-12-23 11:08] LABS: Eosinophils # (M) 0.13 k/uL (0-0.7); Lymphocytes # (M) 2.45 k/uL (1.0-4.8); Monocytes # (M) 1.68 k/uL (0-1.0); Myelocytes # (M) 0.13 k/uL (0); Myelocytes % 1 %; Neutrophils # (M) 8.64 k/uL (1.3-7.7); Neutrophils % (M) 67 %; Nucleated Red Blood Cells 0 /100 WBC (0-0); Poikilocytosis (M) Present; Total Cells Counted 200
== END | disposition home or self-care (01) ==
LOC: PAT 08:22
PROVIDERS: ATTEND Orthopaedic Surgery Orthopaedic Surgery of the Spine
DX: Z01.818 Encounter for other preprocedural examination (principal); M50.00 Cervical disc disorder with myelopathy, unspecified cervical region
CPT/HCPCS: 36415; 71046; 80048; 81003; 85025; 85610; 85730

== ENCOUNTER → 2020-01-02 | Outpatient (CLI) | payer MEDICARE, BC ==
[2020-01-02 09:19] LABS: Basophils % (A) 0 %; Eosinophils # (A) 0.3 k/uL (0-0.7); Eosinophils % (A) 3 %; HCT 41.7 % (39.0-53.0); HGB 13.9 gm/dL (13.0-17.5); Lymphocytes # (A) 2.4 k/uL (1.0-4.8); Lymphocytes % (A) 20 %; MCH 30.9 pg (25.0-35.0); MCHC 33.4 g/dL (31.0-37.0); MCV 92.5 fL (80.0-100.0); Mean Platelet Volume 7.7; Monocytes # (A) 0.9 k/uL (0-1.0); Monocytes % (A) 7 %; Neutrophils # (A) 8.3 k/uL (1.3-7.7); Neutrophils % (A) 68 %; Platelet Count 355 k/uL (150-450); RBC 4.51 m/uL (4.30-5.90); RDW 13.9 % (11.5-15.5); WBC 12.2 k/uL (3.8-10.6)
[2020-01-02 09:21] LABS: Appearance,Urine Clear (Clear); Bilirubin,Urine Negative (Negative); Blood,Urine Negative (Negative); Color,Urine Yellow; Glucose,Urine (UA) Negative (Negative); Ketones,Urine Negative (Negative); Leukocyte Esterase,Urine Negative (Negative); Nitrite,Urine Negative (Negative); PH, Urine 6.5 (5.0-8.0); Protein,Urine Negative (Negative); Specific Gravity,Urine 1.016 (1.001-1.035); Urobilinogen,Urine <2.0 mg/dL (<2.0)
[2020-01-02 09:42] LABS: Protein/Creatinine Ratio,Urine 0.085
[2020-01-02 16:22] LABS: % Iron Saturation 18.55 (15.00-50.00); African American GFR (CKD) 63.6 (60.0-200.0); Albumin 4.4 g/dL (3.80-4.90); Anion Gap 11.6 mmol/L (4.00-12.00); BUN/Creat Ratio 10.77 Ratio (12.00-20.00); Calcium 9.6 mg/dL (8.7-10.3); Carbon Dioxide 30.4 mmol/L (21.6-31.8); Magnesium 1.6 mg/dL (1.5-2.4); Non-African American GFR(CKD) 54.9 (60.0-200.0); Phosphorus 3.3 mg/dL (2.4-5.1); Uric Acid 4.6 mg/dL (3.7-8.7)
[2020-01-02 16:32] LABS: Ferritin 62.9 ng/mL (22.0-322.0)
== END | disposition home or self-care (01) ==
LOC: LABWHC1 08:56
PROVIDERS: ATTEND Nurse Practitioner Family
DX: N18.3 Chronic kidney disease, stage 3 (moderate) (principal); E79.0 Hyperuricemia without signs of inflammatory arthritis and tophaceous disease
CPT/HCPCS: 36415; 80048; 81003; 82040; 82306; 82570; 82728; 83540; 83550; 83735; 83970; 84100; 84156; 84550; 85025; 86335

== ENCOUNTER → 2020-03-11 | Outpatient (CLI) | payer MEDICARE, BC ==
--- NOTE | 2020-03-11 11:33 | CT ---
EXAMINATION TYPE: CT abdomen wo con DATE OF EXAM: 03/11/2020 COMPARISON: 01/16/2019 HISTORY: 69-year-old male C64.1, Renal cancer TECHNIQUE: Contiguous axial scanning of the abdomen without IV contrast. Coronal and sagittal reconst ructions performed. CT DLP: 482.2 mGycm Automated exposure control for dose reduction was used. FINDINGS: Heart normal size without pericardial effusion. A couple vague areas of 4 mm groundglass nodularity at the right lower lobe, axial image 1 and 6 not seen previously. No pleural effusion. 8 mm hypodense area left hepatic dome unchanged. A couple even smaller hypodensities right hepatic do me are unchanged. Noncontrast appearance of the gallbladder, adrenal glands, left kidney, spleen, pancreas and no gross abnormality. Status post right nephrectomy. No suspicious nodularity within the nephrectomy bed. 3.4 cm diverticulum projecting into the pancreatic head region. Moderate atherosclerotic calcifications abdominal aorta and iliac arteries. Moderate atherosclerotic narrowing proximal right common iliac artery. No dilated small bowel, free fluid, or free air. No mesenteric or retroperitoneal lymphadenopathy. No significant stool burden. Left hemipelvic coloni c diverticulosis without acute diverticulitis. Pelvis not imaged. Bones: Moderate degenerative disc disease lower lumbar spine. Facet arthropathy lower lumbar spine. N o osseous process seen. IMPRESSION: 1. NONCONTRAST EXAM SHOWING RIGHT NEPHRECTOMY. NO SUSPICIOUS CHANGES TO SUGGEST LOCAL REGIONAL RECURR ENCE. 2. A COUPLE VAGUE 4 MM GROUNDGLASS NODULES IN THE RIGHT LOWER LOBE NOT CLEARLY SEEN PREVIOUSLY. THIS MAY RELATE TO AN INFECTIOUS/INFLAMMATORY ETIOLOGY. CT CHEST RECOMMENDED AFTER 3 - 4 WEEKS TO REASSESS THESE NODULES AND ALSO TO SURVEY THE REMAINDER OF THE LUNGS. 3. LEFT-SIDED CLONIC DIVERTICULOSIS.
== END | disposition home or self-care (01) ==
LOC: RADCTMAIN 09:33
PROVIDERS: ATTEND Urology
DX: K57.30 Diverticulosis of large intestine without perforation or abscess without bleeding (principal); Z90.5 Acquired absence of kidney; C64.1 Malignant neoplasm of right kidney, except renal pelvis
CPT/HCPCS: 74150

== ENCOUNTER → 2020-03-16 | Outpatient (CLI) | payer BC, MEDICARE ==
--- NOTE | 2020-03-16 16:31 | CT ---
EXAMINATION TYPE: CT chest w con DATE OF EXAM: 03/16/2020 COMPARISON: CT abdomen 03/11/2020 HISTORY: Abnormal CT scan CT DLP: 478 mGycm Automated exposure control for dose reduction was used. CONTRAST: CT scan of the chest is performed with IV Contrast, patient injected with 80 mL of Isovue 300. FINDINGS: LUNGS: The lungs are grossly clear, there is no concerning parenchymal mass or nodule identified. T here is no pleural effusion or pneumothorax seen. The tracheobronchial tree is patent. MEDIASTINUM: There are no greater than 1 cm hilar or mediastinal lymph nodes. No pericardial effusi on is seen. AORTA: No additional significant abnormality is seen. OTHER: Postop changes are noted status post right nephrectomy. There is a duodenal diverticulum pres ent at the head of the pancreas. There are coronary artery calcifications present. IMPRESSION: No suspicious finding. Postop change. Additional findings above. Coronary artery disease .
== END | disposition home or self-care (01) ==
LOC: RADCTMAIN 14:49
PROVIDERS: ATTEND Urology
DX: I25.10 Atherosclerotic heart disease of native coronary artery without angina pectoris (principal); Z98.890 Other specified postprocedural states; Z91.018 Allergy to other foods
CPT/HCPCS: 82565; 84520; 71260; 36415; Q9967

== ENCOUNTER → 2020-03-23 | Outpatient (CLI) | payer MEDICARE, BC ==
[2020-03-23 09:30] LABS: HCT 41.8 % (39.0-53.0); HGB 13.8 gm/dL (13.0-17.5); MCH 31.1 pg (25.0-35.0); Mean Platelet Volume 7.8; Platelet Count 361 k/uL (150-450); RBC 4.44 m/uL (4.30-5.90); RDW 13.6 % (11.5-15.5); WBC 12.5 k/uL (3.8-10.6)
[2020-03-23 09:43] LABS: Partial Thromboplastin Time 25.4 sec (22.0-30.0)
[2020-03-23 10:03] LABS: Calcium 9.5 mg/dL (8.4-10.2)
[2020-03-23 10:37] LABS: Appearance,Urine Clear (Clear); Bilirubin,Urine Negative (Negative); Blood,Urine Negative (Negative); Color,Urine Yellow; Glucose,Urine (UA) Negative (Negative); Ketones,Urine Negative (Negative); Leukocyte Esterase,Urine Negative (Negative); Nitrite,Urine Negative (Negative); PH, Urine 6.5 (5.0-8.0); Protein,Urine Negative (Negative); Specific Gravity,Urine 1.014 (1.001-1.035); Urobilinogen,Urine <2.0 mg/dL (<2.0)
== END | disposition home or self-care (01) ==
LOC: LABPAT 08:30
PROVIDERS: ATTEND Orthopaedic Surgery Orthopaedic Surgery of the Spine
DX: Z01.812 Encounter for preprocedural laboratory examination (principal); M50.00 Cervical disc disorder with myelopathy, unspecified cervical region
CPT/HCPCS: 36415; 80048; 81003; 85027; 85610; 85730; 86850; 86900; 86901

== ENCOUNTER 2020-04-01 06:41 | Day surgery (SDC) | payer MEDICARE, BC ==
[2020-03-27 12:01] VITALS: BMI 29.7
[~2020-04-01 06:41] MED LIST changes: +DEXAMETHASONE SOD PHOSPHATE 10 MG/ML 1 ML VIAL IV ONE; +HYDROmorphone 0.5 MG/0.5 ML SYRINGE IVP PRN; +LIDOCAINE 1% (10MG/ML) FOR IV START INTRADERMA PRN; +MIDAZOLAM 2 MG/2 ML VIAL IV PRN; +ONDANSETRON 4 MG/2 ML VIAL IVP ONE; -Pre Op ABX Message 1 EACH MISC MISCELLANE ONE; +SODIUM CHLORIDE 0.9% IRRIGATIO 1,000 ML IRRIGATION ONE
[2020-04-01] MEDS ORDERED: ONDANSETRON 4 MG/2 ML VIAL ONE (07:37)
[2020-04-01] MEDS: LACTATED RINGERS 1,000 ML IV SCH ×2 (07:44→17:19)
[2020-04-01] MEDS ORDERED: SUCCINYLCHOLINE CHLORIDE 100 MG/5 ML SYR IV ONE (07:53)
[2020-04-01] MEDS ORDERED: DEXAMETHASONE SOD PHOSPHATE 10 MG/ML 1 ML VIAL ONE (07:53)
[2020-04-01] MEDS ORDERED: HYDROmorphone (PF) 1 MG/ML ONE (07:53)
[2020-04-01] MEDS ORDERED: ROCURONIUM BROMIDE 10 MG/ML 5 ML VIAL IV ONE (07:53)
[2020-04-01] MEDS ORDERED: PROPOFOL 10 MG/ML 20 ML VIAL IV ONE (07:53)
[2020-04-01] MEDS ORDERED: fentaNYL (PF) 50 MCG/ML 2 ML AMP ONE (07:53)
[2020-04-01] MEDS ORDERED: MIDAZOLAM 2 MG/2 ML VIAL ONE (07:53)
[2020-04-01] MEDS ORDERED: LIDOCAINE 1% INJ 10MG/ML (20 ML MDV) ONE (07:53)
[2020-04-01] MEDS ORDERED: LACTATED RINGERS 1,000 ML IV ONE ×4 (07:58→11:54)
[2020-04-01] MEDS ORDERED: BUPIVACAIN-EPI 0.25%-1:200,000 30 ML VIAL SQ ONE (08:33)
[2020-04-01] MEDS ORDERED: GELATIN SPONGE,ABSORB (LARGE) 1 EACH SPONGE MISCELLANE ONE (08:33)
[2020-04-01] MEDS ORDERED: THROMBIN (BOVINE) 5,000 UNIT VIAL MISCELLANE ONE (08:33)
--- NOTE | 2020-04-01 09:33 | XR ---
EXAMINATION TYPE: XR cervical spine 1V DATE OF EXAM: 04/01/2020 COMPARISON: NONE HISTORY: Needle placement TECHNIQUE: Crosstable lateral view of the cervical spine FINDINGS: Localizers at the C4-5 level anteriorly. IMPRESSION: As above
[2020-04-01] MEDS ORDERED: HYDROmorphone 0.5 MG/0.5 ML SYRINGE IVP PRN (10:09)
[2020-04-01] MEDS ORDERED: BENZOCAINE/MENTHOL LOZENG 1 EACH LOZENGE MUCOUS MEM PRN (10:09)
[2020-04-01] MEDS ORDERED: HYDROmorphone 1 MG/ML 1 ML SYRINGE IVP PRN (10:09)
[2020-04-01] MEDS ORDERED: ONDANSETRON 4 MG/2 ML VIAL IVP PRN (10:10)
[2020-04-01] MEDS ORDERED: ALBUTEROL NEBULIZED 2.5 MG/3 ML INHALATION PRN (10:11)
[2020-04-01] MEDS ORDERED: BUPIVACAINE (PF) 0.25% 30 ML VIAL SQ ONE ×2 (10:21)
--- NOTE | 2020-04-01 10:41 | XR ---
EXAMINATION TYPE: XR cervical spine 1V DATE OF EXAM: 04/01/2020 COMPARISON: NONE HISTORY: ACDF TECHNIQUE: Stable lateral FINDINGS: ACDF changes with the plate fixation and intravertebral spacers extending from C4-5 through C6-7. Alignment is anatomic. IMPRESSION: As above
--- NOTE | 2020-04-01 10:50 | P.OP ---
Date of Procedure: 04/01/20 Preoperative Diagnosis: Cervical spinal stenosis C4 5 C5 6 C6 7, degenerative disc disease C4 5 C5 6 C6 7, upper extremity radiculopathy, upper extremity weakness, herniated nucleus pulposis C4 5 C5 6 C6 7, neck pain Postoperative Diagnosis: Same Anesthesia: GETA Pathology: none sent Condition: stable Disposition: PACU Description of Procedure: BRIEF OPERATIVE NOTE Preoperative Diagnosis: Cervical spinal stenosis C4 5 C5 6 C6 7, degenerative disc disease C4 5 C5 6 C6 7, upper extremity radiculopathy, upper extremity weakness, herniated nucleus pulposis C4 5 C5 6 C6 7, neck pain, left ring finger trigger finger Postoperative Diagnosis: Same Procedure: Anterior cervical decompression with discectomy and fusion C4 5 C5 6 C6 7 Placement of interbody graft C4 5 C5 6 C6 7 Application of anterior cervical plate C4 5 6 and 7 Release of A1 natalee left ring finger trigger finger (done through separate incision but same anesthesia) Surgeon: Dr. Bray Shape Carver: Farhat Jones is present throughout the entire the case persistence during positioning, dissection, exposure, visualization, and all crucial elements of the case as well as closure. Anesthesia: General anesthesia per trachea and Estimated blood loss: Approximate 75 mL lost at the cervical surgical site with less than 2 mL lost at the hand Complications: None apparent Components implanted: K2M [place] anterior cervical plate system with Vikos interbody allograft bone graft and Vesuvious 1 mL DBX bone putty Tourniquet time at left upper extremity: 10 minutes for left hand trigger finger release Disposition: To recovery room in good stable condition. OPERATIVE INDICATIONS The patient has had long-standing issues in their neck and upper extremities. he is found have severe stenosis of his cervical spine with severe degenerative disc disease. He had complete loss of disc height at multiple levels of the cervical spine and was having significant articular symptoms at his upper extremity with some weakness which correlated well with his neck and upper extremity symptoms. He is also having some problems with his left hand with his left ring finger triggering and locking and position. His imaging of the cervical spine fairly well with his neck and upper extremity symptoms. His exam correlate well with left trigger finger. Patient had been through extensive conservative treatment for his cervical spine and for his left hand. The patient has been through conservative treatment. We discussed various treatment options including surgery, and the patient wishes to proceed with surgery We discussed the risk, patient's alternatives and benefits of surgery including but not limited to, risk of bleeding risk of infection, risk of need for further surgery, risk of decreased, loss of motion, muscle function, malunion nonunion, hardware failure, nerve damage, paralysis, heart attack, and . OPERATIVE SUMMARY After discussing all the risks, patient alternatives and benefits at length, the patient elected to proceed with surgical intervention, signed informed consent, and presented for their procedure. The patient was seen and examined in the preoperative holding area and the surgical site was marked. We marked both his cervical spine as well as his left ring finger on his left hand. The patient was given antibiotics and brought to the operating room. The patient was positioned on the operating room table in a supine position being careful to pad any bony prominences and pressure points. The patient was sedated and intubated by anesthesia in standard fashion. Once the airway and C- spine were stabilized the patient's arms were padded and tucked at her side, with her shoulders gently taped. The head was placed in a donut pad with the neck in good neutral alignment and position. We were careful to maintain the patient's cervical spine and good neutral alignment and position throughout. The patient was prepped and draped in a normal standard fashion. An appropriate timeout and keystone protocol performed. We were able to proceed with the surgery. The local wound area was infiltrated with local anesthetic. An incision was made transversely approximately 2-1/2 cm over the appropriate levels at C6. Dissection was taken down subcutaneously to the level of the platysma which was split in line with its fibers. Dissection was taken with a carotid approach, with the trachea and esophagus medial and the carotid sheath laterally. We dissected down to the anterior surface of the vertebral bodies. Intraoperative x-ray was taken which showed a marker at the appropriate level. With the appropriate level positively confirmed, we were able to proceed with discectomy at the appropriate levels starting at C6 7 and then moving to see 567 C4 5. All of the operative levels were exposed appropriately. The patient had all their twitches back, and there was no evidence of recurrent laryngeal issue. The wound was copiously irrigated and suctioned dry as had been done periodically throughout the case. At the appropriate level/levels, I established an annulotomy with an 11 blade scalpel. A discectomy was performed with a combination of pituitary rongeurs, curettes, a high-speed bur, and Kerrison rongeurs. The posterior longitudinal ligament was taken down as were any posterior osteophytes. Note was made of severe disc degeneration and disc height loss with complete obliteration of the disc space itself. There was significant posterior osteophytes which were taken down as well and I was able to remove these with the decompression and discectomy This gave good central and bilateral foraminal decompression. There is no evidence of any dural tear or leak. The endplates were prepared with a high-speed bur. With the endplates in good parallel position, I was able to size for the appropriate size interbody graft. The wound was irrigated and suctioned dry the graft was prepared and malleted into position. It had good alignment and position with the anterior surface flush with the anterior surface of the vertebral bodies. This was done similarly the appropriate levels at C6 7 and C5 6 and then C4 5. With the grafts intact, I was able to measure and contour and appropriate sized plate. The plate was positioned at the midline over the appropriate levels at C4 5 6 and 7. Screw holes were established with a hand drill and drill guide. Screws were placed in good alignment and position with excellent bony purchase. They were seated under the locking device. The construct was checked and found to be stable. Intraoperative x-ray was taken which showed good alignment and position of the implants at the appropriate levels. There was no evidence of any dural tear or leak. Good hemostasis was maintained. The wound was copiously irrigated and suctioned dry as had been done periodically throughout the case. The platysma was closed with absorbable suture. The subcutaneous tissue was closed. The subcuticular tissue was closed with absorbable suture. The wound was cleaned and dried and dressed appropriately. A soft cervical collar was placed appropriately. At this point thigh drift broken down and we then prepared the left upper extremity and left hand for the trigger finger release at the left ring finger. Using the same anesthesia but through a different surgical site. Left upper extremity was placed in a nonsterile tourniquet and then prepped and draped in normal standard fashion. An Esmarch bandage was used to exsanguinate the left upper extremity and tourniquet was inflated to 250 mmHg. He'll utilize a total of 10 minutes. The surgical site was properly identified and appropriate timeout was again completed for the left trigger finger at the ring finger. The local wound area was infiltrated with local anesthetic. A small 1 cm incision was made over the A1 natalee transversely. I was able to stick sec down through the skin and subcu tissue to expose the A1 natalee itself. The natalee was then incised with a limb blade scalpel and then with tenotomy scissors to get full release. I was able to find the flexor tendon manipulated and get good full excursion without any evidence of further triggering. Good hemostasis maintained. The wound was copiously irrigated and suctioned dry and the skin was closed with 5-0 nylon. The tourniquet was dropped at approximate 10 minutes and he had good revascularization of his hand and fingers. The hand was then dressed with appropriate dressing over the wound and a bulky dressing. The patient was woken up by anesthesia, extubated, transferred back gently to their hospital bed and brought to the recovery room in good stable condition.The patient will be admitted to the hospital for appropriate postoperative care, medical management and monitoring. We will continue to follow them closely about the postoperative course.
[2020-04-01] MEDS: SODIUM CHLORIDE 0.9% 1,000 ML IV SCH ×2 (17:20→20:32)
[2020-04-01] MEDS: GABAPENTIN 300 MG CAP PO SCH ×2 (17:52→20:32)
[2020-04-01] MEDS: BACLOFEN 10 MG TAB PO SCH ×2 (17:52→20:32)
[2020-04-01] MEDS: HYDROcodone/APAP 5-325MG 1 EACH TAB PO PRN ×2 (18:20→23:16)
[2020-04-01] MEDS: POTASSIUM CHLORIDE ER 10 MEQ TAB.ER.PRT PO SCH (20:32)
[2020-04-01] MEDS: ALLOPURINOL 100 MG TAB PO SCH (20:32)
[2020-04-01] MEDS ORDERED: traZODone HCL 100 MG TAB PO SCH (21:00)
[2020-04-01] MEDS ORDERED: MONTELUKAST 10 MG TAB PO SCH (21:00)
[2020-04-02] MEDS: HYDROcodone/APAP 5-325MG 1 EACH TAB PO PRN ×2 (03:47→09:20)
[2020-04-02] MEDS: LACTATED RINGERS 1,000 ML IV SCH (05:38)
[2020-04-02] MEDS ORDERED: PANTOPRAZOLE 40 MG TABLET PO SCH (07:30)
[2020-04-02 07:48] VITALS: TEMP 98.4
[2020-04-02] MEDS ORDERED: ATENOLOL 50 MG TAB PO SCH (09:00)
[2020-04-02] MEDS ORDERED: THIAMINE 100 MG TAB PO SCH (09:00)
[2020-04-02] MEDS ORDERED: HYDROCHLOROTHIAZIDE 50 MG TAB PO SCH (09:00)
[2020-04-02] MEDS ORDERED: MULTIVITAMINS, THERA 1 EACH TAB PO SCH (09:00)
[2020-04-02] MEDS ORDERED: ASPIRIN 81 MG PO SCH (09:00)
[2020-04-02] MEDS ORDERED: LORATADINE 10 MG TAB PO SCH (09:00)
[2020-04-02] MEDS ORDERED: amLODIPine 10 MG TAB PO SCH (09:00)
[2020-04-02] MEDS ORDERED: SENNOSIDES-DOCUSATE SODIUM 1 EACH TAB PO SCH ×2 (09:00)
[2020-04-02] MEDS: BACLOFEN 10 MG TAB PO SCH (09:21)
[2020-04-02] MEDS: GABAPENTIN 300 MG CAP PO SCH (09:21)
[2020-04-02] MEDS: ALLOPURINOL 100 MG TAB PO SCH (09:21)
[2020-04-02] MEDS: POTASSIUM CHLORIDE ER 10 MEQ TAB.ER.PRT PO SCH (09:21)
--- NOTE | 2020-04-02 12:11 | P.DS ---
Providers Date of admission: 04/01/2020 Expected date of discharge: 04/02/20 Attending physician: Bozena Bray Primary care physician: Khanh Briggs - Discharge Diagnosis(es) (1) Cervical stenosis of spine Current Visit: Yes Status: Acute (2) Degenerative cervical disc Current Visit: Yes Status: Acute (3) Cervicalgia Current Visit: Yes Status: Acute (4) Radiculopathy affecting upper extremity Current Visit: Yes Status: Acute (5) Status post cervical spinal fusion Current Visit: Yes Status: Acute (6) Hyperlipidemia Current Visit: Yes Status: Acute (7) Hypertension Current Visit: Yes Status: Acute (8) Trigger finger of left hand Current Visit: Yes Status: Acute (9) Cervical paraspinal muscle spasm Current Visit: Yes Status: Acute Hospital Course: This is a pleasant 69-year-old male who presented with C4-5, C5-6, and C6-7 degenerative disc disease and herniated nucleus pulposus with cervical spinal stenosis, upper extremity radiculopathy and weakness with cervicalgia along with left ring finger trigger finger who failed outpatient conservative therapy. He was admitted for C4-5, C5-6, and C6-7 anterior cervical decompression and fusion with release of A1 natalee of the left ring finger trigger finger. The patient tolerated the procedure well and did well postoperatively. He has some pain at the posterior cervical spine over the trapezius and between the shoulder blades while sitting upright. He has no other complaints. He feels a cervical pain is well-controlled. He is not currently experiencing any significant upper extremity radiculopathy symptoms. He is not experiencing any significant pain at the surgical site at his left hand. He's been eating and voiding without difficulty. He states overall he feels completely normal other than the pain over the trapezius and between the shoulder blades. he does have some bruising and mild swelling around the surgical site without any difficulty. He states he is eating, swallowing, and breathing without any difficulty. He is very happy with his progress postoperatively. He feels he is ready for discharge home today. Condition on day of discharge stable. Patient will be discharged home. Patient was cleared preoperatively for surgery by Dr. Briggs. Patient currently denies any nausea, vomiting, fever, or chills. Patient is eating and voiding freely without difficulty. Patient may shower Opitfoam dressing intact. Patient may remove Opitfoam dressing in 3 days and shower without a dressing at that time. Patient should refrain from driving until at least after their first follow-up appointment in the office. Patient should avoid excessive neck flexion, extension, rotation, and lateral sidebending; no overhead lifting; no lifting greater than 10 pounds. Leave dressing intact over the left hand over the next 3 days postoperatively. Patient may remove dressing and keep incision site uncovered in 3 days if incision remains clean and dry. Patient should avoid excessive activities of left hand. No lifting greater than 5 pounds of left hand. Patient may elevate the left hand and provide ice over the dressing for comfort support as needed. MAPS has been reviewed today, 04/02/2020, with an Overall Overdose Risk Score of 040. An "Opiod Start Talking" Forn has been signed and placed in the patient's chart. A prescription has been written for [place] 7.5 mg/325 mg 1 tab every 4 hours as needed for pain, dispense #42. Patient should discontinue previously prescribed [place] 5 mg/325 mg. We discussed patient may benefit from muscle relaxer medication. Prescription is written for baclofen 10 mg 1 tab 3 times a day as needed for muscle spasm, dispensed #45. Patient's past medical history includes hypertension and hyperlipidemia. Physical Exam on day of discharge: Patient is awake, alert, and oriented 3 Vital signs stable Good chest excursion with deep inspiration and expiration Full range of motion of the cervical spine with adequate flexion, extension, and bilateral rotation Line [place] strength, thumb strength, interosseous strength, biceps strength, triceps strength, and shoulder strength positive sustained bilaterally Soft cervical collar intactis removed during physical examination Active range of motion bilateral upper extremities have difficulty Dressing over the left hand and wrist remains intact with Adaptic, 4 x 4's, stretcher, and Mario Alberto; dressing is clean and dry Inspection of the surgical site does show some bruising under the entire inferior portion of the dressing with some extension to the left anterior lateral portion of the neck No evidence of significant bruising above the surgical site Mild swelling around the surgical site No pain with palpation around the surgical site Incision is clean, dry, and intact; no erythema, purulence, or signs of infection Optifoam dressing intact Procedures: C4-5, C5-6, and C6-7 anterior cervical decompression and fusion with release of A1 natalee of the left ring finger trigger finger. Patient Condition at Discharge: Stable Plan - Discharge Summary Discharge Rx Participant: No New Discharge Prescriptions: New Baclofen 10 mg PO TID PRN #45 tab PRN Reason: Spasms HYDROcodone/APAP 7.5-325MG [[place] 7.5-325] 1 each PO Q4HR PRN #42 tab PRN Reason: Pain No Action Albuterol Inhaler (Mhu) [Ventolin Hfa Inhaler] 1 - 2 puff INHALATION RT-QID PRN PRN Reason: COPD amLODIPine [Norvasc] 10 mg PO QAM Atenolol [Tenormin] 50 mg PO QAM Baclofen [Lioresal] 10 mg PO TID Cetirizine HCl [Zyrtec] 10 mg PO DAILY Gabapentin [Neurontin] 300 mg PO TID Hydrochlorothiazide [Hydrodiuril] 50 mg PO QAM HYDROcodone/APAP 5-325MG [[place] 5-325] 1 tab PO Q4H PRN PRN Reason: Pain Metabolism Support 250 mg PO DAILY Multivitamins, Thera [Multivitamin (formulary)] 1 tab PO DAILY Omeprazole [PriLOSEC] 20 mg PO AC-BRKFST Potassium Chloride ER [K-Dur 10] 10 meq PO BID Thiamine HCl [Vitamin B-1] 100 mg PO DAILY traZODone HCL [Desyrel] 100 mg PO HS Montelukast [Singulair] 10 mg PO HS Aspirin [Adult Low Dose Aspirin EC] 81 mg PO DAILY Allopurinol [Zyloprim] 100 mg PO BID Discharge Medication List Albuterol Inhaler (Mhu) [Ventolin Hfa Inhaler] 1 - 2 puff INHALATION RT-QID PRN 12/28/17 [History] Atenolol [Tenormin] 50 mg PO QAM 12/28/17 [History] Baclofen [Lioresal] 10 mg PO TID 12/28/17 [History] Cetirizine HCl [Zyrtec] 10 mg PO DAILY 12/28/17 [History] Gabapentin [Neurontin] 300 mg PO TID 12/28/17 [History] HYDROcodone/APAP 5-325MG [[place] 5-325] 1 tab PO Q4H PRN 12/28/17 [History] Hydrochlorothiazide [Hydrodiuril] 50 mg PO QAM 12/28/17 [History] Metabolism Support 250 mg PO DAILY 12/28/17 [History] Multivitamins, Thera [Multivitamin (formulary)] 1 tab PO DAILY 12/28/17 [History] Omeprazole [PriLOSEC] 20 mg PO AC-BRKFST 12/28/17 [History] Potassium Chloride ER [K-Dur 10] 10 meq PO BID 12/28/17 [History] Thiamine HCl [Vitamin B-1] 100 mg PO DAILY 12/28/17 [History] amLODIPine [Norvasc] 10 mg PO QAM 12/28/17 [History] traZODone HCL [Desyrel] 100 mg PO HS 12/28/17 [History] Allopurinol [Zyloprim] 100 mg PO BID 03/27/20 [History] Aspirin [Adult Low Dose Aspirin EC] 81 mg PO DAILY 03/27/20 [History] Montelukast [Singulair] 10 mg PO HS 03/27/20 [History] Baclofen 10 mg PO TID PRN #45 tab 04/02/20 [Rx] HYDROcodone/APAP 7.5-325MG [[place] 7.5-325] 1 each PO Q4HR PRN #42 tab 04/02/20 [Rx] Follow up Appointment(s)/Referral(s): Bozena Bray DO [Doctor of Osteopathic Medicine] - 2 Weeks (Patient may follow-up with Farhat Polanco PA-C or Dr. Samson Bray at [facility] in 2-3 weeks following discharge. ) Activity/Diet/Wound Care/Special Instructions: Keep site clean. May shower with waterproof Optifoam intact. Do not soak in a tub. After 72 hours postoperatively, patient May remove dressing and then may shower with area uncovered. May ambulate as tolerated. Avoid heavy or rigorous activity. No repetitive bending twisting or lifting. No overhead work. Limited use of left hand. May lift less than 5 pounds. May apply ice over the dressing of the left hand for comfort support as needed Elevate left hand. Discharge Disposition: HOME SELF-CARE
[2020-04-02 14:41] VITALS: BP 142/72; PULSE 65; RESP 20
== END 2020-04-02 14:58 | disposition home or self-care (01) ==
LOC: OR 06:41 → EDSTATUS 08:00 → 4SSUR 11:56 → OR 04-02 14:58
PROVIDERS: ATTEND Orthopaedic Surgery Orthopaedic Surgery of the Spine
DX: M50.021 Cervical disc disorder at C4-C5 level with myelopathy (principal); M50.121 Cervical disc disorder at C4-C5 level with radiculopathy; M48.02 Spinal stenosis, cervical region; M43.12 Spondylolisthesis, cervical region; M25.78 Osteophyte, vertebrae; M51.36 Other intervertebral disc degeneration, lumbar region; M48.061 Spinal stenosis, lumbar region without neurogenic claudication; M47.816 Spondylosis without myelopathy or radiculopathy, lumbar region; M65.342 Trigger finger, left ring finger; I10 Essential (primary) hypertension; J44.9 Chronic obstructive pulmonary disease, unspecified; E66.9 Obesity, unspecified; E78.2 Mixed hyperlipidemia; M10.9 Gout, unspecified; K21.9 Gastro-esophageal reflux disease without esophagitis; Z79.82 Long term (current) use of aspirin; Z79.899 Other long term (current) drug therapy; Z97.3 Presence of spectacles and contact lenses; Z90.5 Acquired absence of kidney; Z85.528 Personal history of other malignant neoplasm of kidney; Z87.891 Personal history of nicotine dependence; Z68.29 Body mass index [BMI] 29.0-29.9, adult; Z80.0 Family history of malignant neoplasm of digestive organs; Z84.1 Family history of disorders of kidney and ureter; Z83.3 Family history of diabetes mellitus; Z82.49 Family history of ischemic heart disease and other diseases of the circulatory system; Z91.018 Allergy to other foods
CPT/HCPCS: 22551; 22552 ×2; 22853 ×3; 20930; 22846; 26055; 72020; C1713 ×2; C1762 ×2; J2250; J1100; J0690; J2405; J2001; J3010; J1170; J0330; J2704; 86850; 86900; 86901

== ENCOUNTER 2020-04-06 08:09 | Inpatient (IN) | payer MEDICARE, BC ==
--- NOTE | 2020-04-06 08:26 | ED ---
General Adult HPI - General Stated complaint: Post Op Neck Pain Time Seen by Provider: 04/06/20 08:09 Source: patient, RN notes reviewed, old records reviewed - History of Present Illness Initial comments: This is a 69-year-old male who presents emergency department via ambulance. Patient comes in complaining of neck pain radiating down to both elbows. Patient states she had surgery on the and was released from the hospital on the . Patient states he was having neck pain at that time with some radiation to the shoulders but the pain is gotten substantially worse and today it was so bad he felt like he needs to come to the hospital immediately. Patient denies any fever chills. Patient denies any numbness. Patient states both arms feel little weaker than they have in the past. Patient denies any chest pain difficulty breathing shortness of breath. Patient denies any diaphoretic episodes. Patient denies any nausea. Patient denies any lightheadedness or dizziness. - Related Data Home Medications Medication Instructions Recorded Confirmed Atenolol [Tenormin] 50 mg PO QAM 12/28/17 04/06/20 Cetirizine HCl [Zyrtec] 10 mg PO DAILY 12/28/17 04/06/20 Gabapentin [Neurontin] 300 mg PO TID 12/28/17 04/06/20 Hydrochlorothiazide [Hydrodiuril] 50 mg PO QAM 12/28/17 04/06/20 Metabolism Support 250 mg PO DAILY 12/28/17 04/06/20 Multivitamins, Thera [Multivitamin 1 tab PO DAILY 12/28/17 04/06/20 (formulary)] Omeprazole [PriLOSEC] 20 mg PO AC-BRKFST 12/28/17 04/06/20 Potassium Chloride ER [K-Dur 10] 10 meq PO BID 12/28/17 04/06/20 Thiamine HCl [Vitamin B-1] 100 mg PO DAILY 12/28/17 04/06/20 amLODIPine [Norvasc] 10 mg PO QAM 12/28/17 04/06/20 traZODone HCL [Desyrel] 100 mg PO HS 12/28/17 04/06/20 Allopurinol [Zyloprim] 100 mg PO BID 03/27/20 04/06/20 Aspirin [Adult Low Dose Aspirin EC] 81 mg PO DAILY 03/27/20 04/06/20 Montelukast [Singulair] 10 mg PO HS 03/27/20 04/06/20 Albuterol Sulfate [Ventolin HFA] 1 - 2 puff INHALATION RT-Q6H PRN 04/06/20 04/06/20 HYDROcodone/APAP 7.5-325MG [[place] 1 tab PO Q4HR PRN 04/06/20 04/06/20 7.5-325] Previous Rx's Medication Instructions Recorded Baclofen 10 mg PO TID PRN #45 tab 04/02/20 Allergies Allergy/AdvReac Type Severity Reaction Status Date / Time strawberry Allergy Dyspnea Verified 04/06/20 09:13 Review of Systems ROS Statement: Those systems with pertinent positive or pertinent negative responses have been documented in the HPI. ROS Other: All systems not noted in ROS Statement are negative. Past Medical History Past Medical History: COPD, GERD/Reflux, Hearing Disorder / Deafness, Hyperlipidemia, Hypertension, Musculoskeletal Disorder, Osteoarthritis (OA), Renal Disease Additional Past Medical History / Comment(s): MASS OF KIDNEY, POSS CA. GOUT. BACK PAIN. INSOMNIA. History of Any Multi-Drug Resistant Organisms: None Reported Past Surgical History: Back Surgery, Orthopedic Surgery Additional Past Surgical History / Comment(s): LT CTR HAND, LT TOE. Past Anesthesia/Blood Transfusion Reactions: No Reported Reaction Past Psychological History: No Psychological Hx Reported Smoking Status: Former smoker Past Alcohol Use History: Heavy Additional Past Alcohol Use History / Comment(s): SMOKED 40 PLUS YEARS, 1 1/2 PPD, QUIT 2007. QUIT ETOH 2006-. Past Drug Use History: None Reported - Past Family History Mother Family Medical History: Cancer Father Family Medical History: Renal Disease General Exam - General Exam Comments Initial Comments: GENERAL: Patient is well-developed and well-nourished. Patient is nontoxic and well- hydrated and is in mild distress. ENT: Patient's neck is swollen on the right side by the incision. The incision appears to be healing well there appears to be no signs of infection. EYES: The sclera were anicteric and conjunctiva were pink and moist. Extraocular movements were intact and pupils were equal round and reactive to light. Eyelid s were unremarkable. PULMONARY: Unlabored respirations. Good breath sounds bilaterally. No audible rales rhonchi or wheezing was noted. CARDIOVASCULAR: There is a regular rate and rhythm without any murmurs gallops or rubs. ABDOMEN: Soft and nontender with normal bowel sounds. SKIN: Skin is clear with no lesions or rashes and otherwise unremarkable. NEUROLOGIC: Patient is alert and oriented x3. Cranial nerves II through XII are grossly intact. Motor and sensory are also intact. Normal speech, volume and content. Symmetrical smile. MUSCULOSKELETAL: Normal extremities with adequate strength and full range of motion. LYMPHATICS: No significant lymphadenopathy is noted PSYCHIATRIC: Normal psychiatric evaluation. Course Vital Signs 04/06/20 04/06/20 08:12 09:01 Temperature 98 F Pulse Rate 70 67 Respiratory 19 18 Rate Blood Pressure 156/90 152/92 O2 Sat by Pulse 96 95 Oximetry Medical Decision Making - Medical Decision Making CAT scan shows a possible early abscess in the neck around the surgical site. I started the patient on Unasyn I called Dr. Bray he agreed to admit the patient admitted the patient wrote admitting orders - Lab Data Result diagrams: 04/06/20 08:28 04/06/20 08:58 Lab Results 04/06/20 04/06/20 Range/Units 08:28 08:58 WBC 23.5 H (3.8-10.6) k/uL RBC 4.87 (4.30-5.90) m/uL Hgb 14.8 (13.0-17.5) gm/dL Hct 44.7 (39.0-53.0) % MCV 91.8 (80.0-100.0) fL MCH 30.4 (25.0-35.0) pg MCHC 33.1 (31.0-37.0) g/dL RDW 13.6 (11.5-15.5) % Plt Count 406 (150-450) k/uL Neutrophils % 82 % Lymphocytes % 9 % Monocytes % 6 % Eosinophils % 1 % Basophils % 0 % Neutrophils # 19.3 H (1.3-7.7) k/uL Lymphocytes # 2.0 (1.0-4.8) k/uL Monocytes # 1.4 H (0-1.0) k/uL Eosinophils # 0.3 (0-0.7) k/uL Basophils # 0.1 (0-0.2) k/uL Sodium 138 (137-145) mmol/L Potassium 4.0 (3.5-5.1) mmol/L Chloride 101 (98-107) mmol/L Carbon Dioxide 26 (22-30) mmol/L Anion Gap 11 mmol/L BUN 26 H (9-20) mg/dL Creatinine 1.06 (0.66-1.25) mg/dL Est GFR (CKD-EPI)AfAm 82 (>60 ml/min/1.73 sqM) Est GFR (CKD-EPI)NonAf 71 (>60 ml/min/1.73 sqM) Glucose 128 H (74-99) mg/dL Calcium 9.4 (8.4-10.2) mg/dL Total Bilirubin 0.8 (0.2-1.3) mg/dL AST 47 (17-59) U/L ALT 49 (4-49) U/L Alkaline Phosphatase 115 (38-126) U/L Total Protein 7.0 (6.3-8.2) g/dL Albumin 4.4 (3.5-5.0) g/dL Disposition Clinical Impression: Postoperative abscess Disposition: ADMITTED IP TO THIS HOSP Referrals: Khanh Briggs MD [Primary Care Provider] - 1-2 days Time of Disposition: 10:32
[2020-04-06] MEDS ORDERED: methylPREDNISolone SOD SUCCI 125 MG/2 ML VIAL IV STA (08:27)
[2020-04-06 08:37] LABS: Basophils # (A) 0.1 k/uL (0-0.2); Basophils % (A) 0 %; Eosinophils # (A) 0.3 k/uL (0-0.7); Eosinophils % (A) 1 %; HCT 44.7 % (39.0-53.0); HGB 14.8 gm/dL (13.0-17.5); Lymphocytes % (A) 9 %; MCH 30.4 pg (25.0-35.0); MCHC 33.1 g/dL (31.0-37.0); MCV 91.8 fL (80.0-100.0); Mean Platelet Volume 8.2; Monocytes # (A) 1.4 k/uL (0-1.0); Monocytes % (A) 6 %; Neutrophils # (A) 19.3 k/uL (1.3-7.7); Neutrophils % (A) 82 %; Platelet Count 406 k/uL (150-450); RBC 4.87 m/uL (4.30-5.90); RDW 13.6 % (11.5-15.5); WBC 23.5 k/uL (3.8-10.6)
--- NOTE | 2020-04-06 09:01 | XR ---
Cervical spine Limited HISTORY: Postoperative pain 3 views of the cervical spine correlated to prior exam dated 04/01/2020 Patient is status post anterior cervical fusion and discectomy at C4-C7. Minimal anterolisthesis grad e 1 C2-3. There is air within the soft tissues of the neck which is likely postoperative, there is th ickening of the vertebral soft tissues. Loss of disc height is present at C3-4 with associated spondy losis. C7-T1 is not seen. Patient is edentulous. Carotid artery calcifications are present. Spinal cu rvature noted in the thoracic spine. IMPRESSION: Prevertebral soft tissue thickening, lucency is felt likely to be related to patient's pr ior surgery, there is degenerative disc change. Consider additional imaging for further evaluation.
[2020-04-06 09:17] LABS: Albumin 4.4 g/dL (3.5-5.0); Calcium 9.4 mg/dL (8.4-10.2); Total Bilirubin 0.8 mg/dL (0.2-1.3)
--- NOTE | 2020-04-06 10:07 | CT ---
EXAMINATION TYPE: CT soft tissue neck w con DATE OF EXAM: 04/06/2020 COMPARISON: None HISTORY: 69-year-old male Bilateral shoulder pain post OP cervical fusion 5 days ago. TECHNIQUE: Contiguous axial scanning of the soft tissues of the neck performed with IV Contrast, wilbert ent injected with 100 mL of Isovue 300. Coronal/sagittal reconstructions performed. CT DLP: 363.9 mGycm Automated exposure control for dose reduction was used. FINDINGS: S-shaped scoliosis of the visualized cervical thoracic spine. Postsurgical changes of C4-C7 ACDF. There is a moderate retropharyngeal effusion. Mixed air and fluid collection extending towards the right along the surgical levels anterior to the right carotid space measuring up to 3.4 cm wide by 1.7 cm AP by 3.7 cm greater caudal, refer to axial image 54 and coronal image 20. Suspect extension of fluid along the medial margin of the sternocleidomastoid, axial image 51, to a c ontiguous more superficial air-fluid collection extending to the right perimedian mid to lower neck m easuring up to 4.4 cm wide by 3.7 cm craniocaudal by 2.8 cm AP, refer to axial images 47, 53, and cor onal image 20. Thyroid gland appears satisfactory. Submandibular and parotid glands appear satisfactory. Visualized paranasal sinuses are clear. Some trapped fluid in the inferior left mastoid air cells. Nasopharynx appears clear. There is some narrowing of the oropharynx and hypopharynx due to the prevertebral soft tissue swellin g. Glottic and subglottic structures as well as the tracheal column appear clear. Minimal emphysematous change in the visualized upper lungs.. Prominent but nonenlarged cervical lymph nodes measuring up to 9 mm short axis. IMPRESSION: 1. THERE IS A PERIOPERATIVE AIR AND FLUID COLLECTION TOWARDS THE RIGHT OF THE C4-C7 ACDF. THIS IS LOC ATED ANTERIOR TO THE RIGHT CAROTID SPACE MEASURING UP TO 3.7 X 3.4 X 1.7 CM. 2. CONTIGUOUS EXTENSION ALONG THE MEDIAL MARGIN OF THE RIGHT STERNOCLEIDOMASTOID TO A MORE SUPERFICIA L AIR AND FLUID COLLECTION EXTENDING TO THE RIGHT PARAMEDIAN MID TO LOWER NECK MEASURING 4.4 X 3.7 X 2.8 CM. 3. FINDINGS CONCERNING FOR EARLY ABSCESS FORMATION. HOWEVER, GIVEN THE RECENT SURGERY, FURTHER CLINIC AL CORRELATION IS RECOMMENDED FOR POSTOPERATIVE SEROMA. SUPERINFECTED SEROMA NOT EXCLUDED. 4. MODERATE RETROPHARYNGEAL EFFUSION. CORRELATE TO EXCLUDE RETROPHARYNGEAL CELLULITIS. 5. MILD CIRCUMFERENTIAL NARROWING OF THE OROPHARYNGEAL AND HYPOPHARYNGEAL AIRWAY WITHOUT JOSSE COMPRO MISE AT THIS TIME.
[2020-04-06] MEDS ORDERED: AMPICILLIN-SULBACTAM 3 GM in SODIUM CHLORIDE 0.9% 100 ML IVPB STA (10:27)
[2020-04-06] MEDS ORDERED: VANCOMYCIN IV PER PHARMACY 1 EACH MISC MISCELLANE PRN (10:51)
[2020-04-06] MEDS: SODIUM CHLORIDE 0.9% 1,000 ML IV ONE (11:13)
[2020-04-06] MEDS: CEFEPIME 2 GM in SODIUM CHLORIDE 0.9% 100 ML IVPB SCH ×2 (11:13→20:24)
[2020-04-06] MEDS ORDERED: BACLOFEN 10 MG TAB PO PRN (11:43)
[2020-04-06] MEDS ORDERED: ALBUTEROL NEBULIZED 2.5 MG/3 ML INHALATION PRN (11:43)
--- NOTE | 2020-04-06 12:00 | P.HPOR ---
History of Present Illness H&P Date: 04/06/20 Chief Complaint: Bilateral upper extremity radiculopathy and difficulty corinnaal kennedy Patient is a very pleasant 69-year-old male well known to our service who is seen and examined in the emergency room #6 for the evaluation of his cervical spine. He is status post C4-5, C5-6, and C6-7 anterior cervical decompression and fusion with release of A1 natalee of the left ring finger trigger finger performed on 04/01/2020. He was discharged on 04/02/2020. He states over the weekend he began to have increased pain radiating from the shoulders down to the elbows bilaterally. He states he had difficulty lifting his arm for a couple coffee due to his pain. He feels his pain was not well controlled at home. He states he started having some difficulty with swallowing as well. He presented to the emergency department morning for further evaluation. He was given a dose of Solu-Medrol 125 mg. Patient states since his admittance he feels significantly better. He has experiencing significantly less pain radiating down the bilateral upper extremities. He states he is swallowing without difficulty. He states his pain is much more manageable and feels with her current level of pain he has it would be manageable at home. He is not having any difficulty at his left ring finger following release of A1 natalee. Consultation has been placed with infectious disease. Dr. Lancaster has started the patient on cefepime and vancomycin. Patient does have a past medical history which includes hypertension and hyperlipidemia. Lab imaging does show elevated WBC at 23.5. Past Medical History Past Medical History: COPD, GERD/Reflux, Hearing Disorder / Deafness, Hyperlipidemia, Hypertension, Musculoskeletal Disorder, Osteoarthritis (OA), Renal Disease Additional Past Medical History / Comment(s): MASS OF KIDNEY, POSS CA. GOUT. BACK PAIN. INSOMNIA. History of Any Multi-Drug Resistant Organisms: None Reported Past Surgical History: Back Surgery, Orthopedic Surgery Additional Past Surgical History / Comment(s): LT CTR HAND, LT TOE. neck fusion 04/02 Past Anesthesia/Blood Transfusion Reactions: No Reported Reaction Past Psychological History: No Psychological Hx Reported Smoking Status: Former smoker Past Alcohol Use History: Heavy Additional Past Alcohol Use History / Comment(s): SMOKED 40 PLUS YEARS, 1 1/2 PPD, QUIT 2007. QUIT ETOH 2006-. Past Drug Use History: None Reported - Past Family History Mother Family Medical History: Cancer Father Family Medical History: Renal Disease Medications and Allergies Home Medications Medication Instructions Recorded Confirmed Type Atenolol [Tenormin] 50 mg PO QAM 12/28/17 04/06/20 History Cetirizine HCl [Zyrtec] 10 mg PO DAILY 12/28/17 04/06/20 History Gabapentin [Neurontin] 300 mg PO TID 12/28/17 04/06/20 History Hydrochlorothiazide [Hydrodiuril] 50 mg PO QAM 12/28/17 04/06/20 History Metabolism Support 250 mg PO DAILY 12/28/17 04/06/20 History Multivitamins, Thera [Multivitamin 1 tab PO DAILY 12/28/17 04/06/20 History (formulary)] Omeprazole [PriLOSEC] 20 mg PO AC-BRKFST 12/28/17 04/06/20 History Potassium Chloride ER [K-Dur 10] 10 meq PO BID 12/28/17 04/06/20 History Thiamine HCl [Vitamin B-1] 100 mg PO DAILY 12/28/17 04/06/20 History amLODIPine [Norvasc] 10 mg PO QAM 12/28/17 04/06/20 History traZODone HCL [Desyrel] 100 mg PO HS 12/28/17 04/06/20 History Allopurinol [Zyloprim] 100 mg PO BID 03/27/20 04/06/20 History Aspirin [Adult Low Dose Aspirin EC] 81 mg PO DAILY 03/27/20 04/06/20 History Montelukast [Singulair] 10 mg PO HS 03/27/20 04/06/20 History Baclofen 10 mg PO TID PRN #45 tab 04/02/20 04/06/20 Rx Albuterol Sulfate [Ventolin HFA] 1 - 2 puff INHALATION RT-Q6H PRN 04/06/20 04/06/20 History HYDROcodone/APAP 7.5-325MG [Clio 1 tab PO Q4HR PRN 04/06/20 04/06/20 History 7.5-325] Allergies Allergy/AdvReac Type Severity Reaction Status Date / Time strawberry Allergy Dyspnea Verified 04/06/20 09:13 Physical Examination Physical exam: Patient is awake, alert, and oriented 3 Vital signs stable Good chest excursion with deep inspiration and expiration Full range of motion of the cervical spine with adequate flexion, extension, and bilateral rotation Barrel Maker strength, thumb strength, interosseous strength, biceps strength, triceps strength, and shoulder strength positive sustained bilaterally Active range of motion bilateral upper extremities have difficulty Dressing over the left hand and wrist has been removed; incision site is clean, dry, intact with sutures remaining in place; no erythema, bruising, swelling, or obvious sign of infection surgical site Inspection of the surgical site does show bruising around the surgical site with some extension medially and laterally No pain with palpation around the surgical site or the anterior cervical spine Evidence of swelling around the surgical site which is somewhat firm to palpation Results Pertinent studies: X-ray of the cervical spine taken on 04/06/2020: Plate, screws, and allograft bone graft remain in good alignment and position at C4-5, C5-6, and C6-7 with no evidence for fracture, loosening, or fatigue; C3-4 degenerative disc disease and spondylosis; prevertebral soft tissue thickening CT of the soft tissue of the neck taken on 04/06/2020: Perioperative air fluid collection towards the right of the C4-7 anterior cervical decompression and f usion located anterior to the right carotid space measuring 3.7 cm x 3.4 cm x 1.7 cm; continuous extension along the medial margin of the right SCM muscle to more superficial and fluid collection extending to the right paramedian mid to lower neck measuring 4.4 cm x 3.7 cm x 2.8 cm; findings concerning for early abscess however given recent surgery further clinical correlation recommended for postoperative seroma - Labs Labs: Abnormal Lab Results - Last 24 Hours (Table) 04/06/20 04/06/20 Range/Units 08:28 08:58 WBC 23.5 H (3.8-10.6) k/uL Neutrophils # 19.3 H (1.3-7.7) k/uL Monocytes # 1.4 H (0-1.0) k/uL BUN 26 H (9-20) mg/dL Glucose 128 H (74-99) mg/dL H & H 04/06/20 Range/Units 08:28 Hgb 14.8 (13.0-17.5) gm/dL Hct 44.7 (39.0-53.0) % Result Diagrams: 04/06/20 08:28 04/06/20 08:58 Assessment and Plan Assessment: Assessment: Status post C4-5, C5-6, and C6-7 anterior cervical decompression and fusion with release of A1 natalee of the left ring finger trigger finger Swelling around the surgical site at the anterior cervical spine; possible postoperative seroma, hematoma, or possible early abscess Bilateral upper extremity radiculopathy C3-4 degenerative disc disease and spondylosis Leukocytosis Hypertension Hyperlipidemia (1) Neck swelling Current Visit: Yes Status: Acute Code(s): R22.1 - LOCALIZED SWELLING, MASS AND LUMP, NECK SNOMED Code(s): 486910525 (2) Leukocytosis Current Visit: Yes Status: Acute Code(s): D72.829 - ELEVATED WHITE BLOOD CELL COUNT, UNSPECIFIED SNOMED Code(s): 877243393 (3) Postoperative seroma Current Visit: Yes Status: Acute Code(s): TJH9138 - SNOMED Code(s): 256200321 (4) Degenerative cervical disc Current Visit: No Status: Acute Code(s): M50.30 - OTHER CERVICAL DISC DEGENERATION, UNSP CERVICAL REGION SNOMED Code(s): 72110711 (5) Hyperlipidemia Current Visit: No Status: Acute Code(s): E78.5 - HYPERLIPIDEMIA, UNSPECIFIED SNOMED Code(s): 91765261 (6) Hypertension Current Visit: No Status: Acute Code(s): I10 - ESSENTIAL (PRIMARY) HYPERTENSION SNOMED Code(s): 19380589 (7) Radiculopathy affecting upper extremity Current Visit: No Status: Acute Code(s): M54.10 - RADICULOPATHY, SITE UNSPECIFIED SNOMED Code(s): 59067049 (8) Status post cervical spinal fusion Current Visit: No Status: Acute Code(s): Z98.1 - ARTHRODESIS STATUS SNOMED Code(s): 7759348169816 (9) Trigger finger of left hand Current Visit: No Status: Acute Code(s): M65.30 - TRIGGER FINGER, UNSPECIFIED FINGER SNOMED Code(s): 026656241 Plan: Plan: 1. Imaging has been reviewed by Dr. Samson Bray and myself. Patient has been discussed in detail with Dr. Samson Bray. Patient does have some swelling around the surgical site along with some bruising. Patient is not experiencing any pain with palpation around the surgical site. Surgical site is somewhat firm to palpation. Patient is postoperative day #5. The patient does have an elevated WBC, but we do not feel the patient has an abscess at his surgical site. Patient may have a seroma or hematoma. Patient is not experiencing any fever or chills. His temperature has remained stable. Patient feels his symptoms have significantly improved since presenting to the emergency department. He states he is able to swallow without difficulty. His upper extremity radiculopathy has improved. He has not received any pain medication. He was given 1 dose of Solu-Medrol 125 mg IV. It was discussed with the patient and Dr. Samson Bray we will begin the patient on Solu-Medrol 60 mg IV every 12 hours. We will currently planned to continue with conservative treatment and watch the patient closely. We are not currently planning for acute surgical intervention at his cervical spine. We will plan to resume the patient's home medications. If the pain does not continue to improve, we may consider obtaining a new MRI of the cervical spine. Dressing has been removed at the surgical site of the left trigger finger. Sutures remain intact. Incision remains dry with no erythema, purulence, or obvious sign of infection. Patient may keep the surgical site uncovered at this time. He should continue to avoid excessive activities of the left hand. We will plan to add Clio 5 mg/325 mg 1 tab every 6 hours as needed for pain. 2. Patient is is waiting for consultation with Dr. Lancaster in infectious disease. 3. Consultation will be placed with medicine for medical management Time with Patient: Greater than 30 (Including obtaining history, physical examination, reviewing of imaging, and dictation.)
[2020-04-06] MEDS: VANCOMYCIN 1,500 MG in SODIUM CHLORIDE 0.9% 250 ML IVPB SCH ×2 (12:04→23:30)
[2020-04-06] MEDS: MORPHINE SULFATE 2 MG/ML SYRINGE IVP PRN ×2 (12:04→19:33)
[2020-04-06] MEDS: GABAPENTIN 300 MG CAP PO SCH ×2 (15:40→20:25)
[2020-04-06] MEDS ORDERED: AMPICILLIN-SULBACTAM 3 GM in SODIUM CHLORIDE 0.9% 100 ML IVPB SCH (18:00)
[2020-04-06] MEDS: traZODone HCL 100 MG TAB PO SCH (20:25)
[2020-04-06] MEDS: methylPREDNISolone SOD SUCCI 125 MG/2 ML VIAL IV SCH (20:25)
[2020-04-06] MEDS: POTASSIUM CHLORIDE ER 10 MEQ TAB.ER.PRT PO SCH (20:25)
[2020-04-06] MEDS: allopurinoL 100 MG TAB PO SCH (20:25)
[2020-04-06] MEDS: MONTELUKAST 10 MG TAB PO SCH (22:48)
[2020-04-06] MEDS: HYDROcodone/APAP 5-325MG 1 EACH TAB PO PRN (23:30)
--- NOTE | 2020-04-06 23:54 | P.CONS ---
History of Present Illness - Reason for Consult Consult date: 04/06/20 Medical management - Chief Complaint neck swelling and pain - History of Present Illness Patient is a 69-year-old male with known history of COPD, hearing disorder/deafness, GERD, hypertension, hyperlipidemia, osteoarthritis, renal mass, chronic back pain who recently had cervical fusion surgery on 04/01/2020 came to the hospital with the complaints of neck pain worsening for the past 2 to 3 days. Patient states that pain is radiating to the both shoulders and is significantly worse which made him to come to ER by ambulance. Otherwise patient denied any complaints of fever or chills. No numbness of tingling sensation in the fingers. Patient states of both arms feel little weaker than n ormal. No complaints of chest pain or shortness of breath. No nausea vomiting abdominal pain or diaphoresis. No headache or dizziness or lightheadedness. CT neck showed there is perioperative air and fluid collection towards the right at the C4 C7 ACDF. This is located anteriorly right carotid space measuring up to 3.7 x 3.4 x 1.7 cm. Findings concerning for early abscess formation however given the recent surgery further clinical correlation is recommended for postoperative seroma. Mild circumflex narrowing the the oropharyngeal and hypopharyngeal airway without yaz compromise at this time. Laboratory data showed WBC 23.5, hemoglobin 14.8 and platelets 406 ESR 25, CRP 48.8 Lab data showed sodium 138, potassium 4.0, BUN 26 and creatinine 1.06 Covid 19 PCR negative Review of Systems Constitutional: Patient denies any fever or chills . No generalized weakness or weight loss. Abdomen: Patient denied nausea vomiting and diarrhea and abdominal pain. Cardiovascular: Patient denies any chest pain or short of breath no palpitations. Respiratory: patient denied any cough is from production. No shortness of br eath Neurologic: Patient denied any numbness or tingling headache. Musculoskeletal: Patient does have neck swelling and pain. Skin: Negative Psychiatric: Negative Endocrine: No heat or cold intolerance. No recent weight gain. Genitourinary: No dysuria or hematuria. All other 14 point ROS negative except the above Past Medical History Past Medical History: COPD, GERD/Reflux, Hearing Disorder / Deafness, Hyperlipidemia, Hypertension, Musculoskeletal Disorder, Osteoarthritis (OA), Renal Disease Additional Past Medical History / Comment(s): MASS OF KIDNEY, POSS CA. GOUT. BACK PAIN. INSOMNIA. History of Any Multi-Drug Resistant Organisms: None Reported Past Surgical History: Back Surgery, Orthopedic Surgery Additional Past Surgical History / Comment(s): LT CTR HAND, LT TOE. neck fusion 04/02 Past Anesthesia/Blood Transfusion Reactions: No Reported Reaction Past Psychological History: No Psychological Hx Reported Smoking Status: Former smoker Past Alcohol Use History: Heavy Additional Past Alcohol Use History / Comment(s): SMOKED 40 PLUS YEARS, 1 1/2 PPD, QUIT 2007. QUIT ETOH 2006-. Past Drug Use History: None Reported - Past Family History Mother Family Medical History: Cancer Father Family Medical History: Renal Disease Medications and Allergies Home Medications Medication Instructions Recorded Confirmed Type Atenolol [Tenormin] 50 mg PO QAM 12/28/17 04/06/20 History Cetirizine HCl [Zyrtec] 10 mg PO DAILY 12/28/17 04/06/20 History Gabapentin [Neurontin] 300 mg PO TID 12/28/17 04/06/20 History Hydrochlorothiazide [Hydrodiuril] 50 mg PO QAM 12/28/17 04/06/20 History Metabolism Support 250 mg PO DAILY 12/28/17 04/06/20 History Multivitamins, Thera [Multivitamin 1 tab PO DAILY 12/28/17 04/06/20 History (formulary)] Omeprazole [PriLOSEC] 20 mg PO AC-BRKFST 12/28/17 04/06/20 History Potassium Chloride ER [K-Dur 10] 10 meq PO BID 12/28/17 04/06/20 History Thiamine HCl [Vitamin B-1] 100 mg PO DAILY 12/28/17 04/06/20 History amLODIPine [Norvasc] 10 mg PO QAM 12/28/17 04/06/20 History traZODone HCL [Desyrel] 100 mg PO HS 12/28/17 04/06/20 History Allopurinol [Zyloprim] 100 mg PO BID 03/27/20 04/06/20 History Aspirin [Adult Low Dose Aspirin EC] 81 mg PO DAILY 03/27/20 04/06/20 History Montelukast [Singulair] 10 mg PO HS 03/27/20 04/06/20 History Baclofen 10 mg PO TID PRN #45 tab 04/02/20 04/06/20 Rx Albuterol Sulfate [Ventolin HFA] 1 - 2 puff INHALATION RT-Q6H PRN 04/06/20 04/06/20 History HYDROcodone/APAP 7.5-325MG [[place] 1 tab PO Q4HR PRN 04/06/20 04/06/20 History 7.5-325] Allergies Allergy/AdvReac Type Severity Reaction Status Date / Time strawberry Allergy Dyspnea Verified 04/06/20 09:13 Physical Exam Vitals: Vital Signs Temp Pulse Pulse Resp BP BP Pulse Ox 04/06/20 11:00 98.5 F 62 18 144/86 97 04/06/20 10:48 97.8 F 70 16 163/83 95 04/06/20 09:01 67 18 152/92 95 04/06/20 08:12 98 F 70 19 156/90 96 Intake and Output 04/05/20 04/06/20 04/06/20 22:59 06:59 14:59 Other: Voiding Method Toilet Weight 86.183 kg PHYSICAL EXAMINATION: Patient is lying in the bed comfortably, no acute distress, awake alert and oriented.. HEENT: Normocephalic. Neck is supple. Pupils reactive. Nostrils clear. Oral cavity is moist. Ears reveal no drainage. Neck reveals no JVD, carotid bruits, or thyromegaly. CHEST EXAMINATION: Trachea is central. Symmetrical expansion. Lung pisano clear to auscultation and percussion. CARDIAC: Normal S1, S2 with no gallops. No murmurs ABDOMEN: Soft. Bowel sounds normal. No organomegaly. No abdominal bruits. Extremities: reveal no edema. No clubbing or cyanosis Neurologically awake, alert, oriented x3 with well-coordinated movements. No sensory deficit. No focal deficits noted Skin: No rash or skin lesions. Psychiatric: Coperative. Nonsuicidal Musculoskeletal:Patient does have anterior neck swelling and redness of the surgical site. No drainage noted. Decreased range of motion in the neck. . Results CBC & Chem 7: 04/06/20 08:28 04/06/20 08:58 Labs: Abnormal Lab Results - Last 24 Hours (Table) 04/06/20 04/06/20 04/06/20 Range/Units 08:28 08:58 08:58 WBC 23.5 H (3.8-10.6) k/uL Neutrophils # 19.3 H (1.3-7.7) k/uL Monocytes # 1.4 H (0-1.0) k/uL BUN 26 H (9-20) mg/dL Glucose 128 H (74-99) mg/dL C-Reactive Protein 48.8 H (<10.0) mg/L Assessment and Plan Assessment: Swelling in the neck at the anterior cervical spine. post surgical possible seroma/hematoma versus early abscess Recent cervical fusion disc surgery on 04/01/2020 Bilateral upper extremity radiculopathy Uncontrolled hypertension likely due to pain contributing. Continue with home medications Hyperlipidemia COPD stable at this time GERD Hearing disorder/deafness Osteoarthritis History of renal mass Previous history of smoking History of heavy alcohol use DVT prophylaxis. Not on heparin due to recent spinal surgery. Plan: Patient will be continued antibiotics in the form of vancomycin and cefepime. Continue pain medications. Continue with IV hydration patient is also started on IV steroids. Continue with home blood pressure medications and follow-up closely and titrate as needed. Sivakumar PRN. GI prophylaxis. ID was consulted and further recommendations based on the clinical course. We will continue to follow with you. Thank you for your consult. Time with Patient: Greater than 30
--- NOTE | 2020-04-07 00:14 | P.CONS ---
History of Present Illness - Reason for Consult Consult date: 04/06/20 Leukocytosis and possible abscess Requesting physician: Bozena Bray - Chief Complaint Posterior neck pain few days - History of Present Illness Patient is a 69 year male who is status post C4-5/C5-6 and C6-C7 anterior cervical decompression and fusion with the results of the A1 natalee of the left ring finger performed on 04/01/2020 and the patient subsequently discharged home the next day patient had been complaining of pain mostly in the posterior neck area since he has been discharged from the hospital because the pain to be more sharp in nature and almost 10 out of 10 in severity with some radiation to the left arm the patient denies high-grade fever or any chills , with the symptoms the patient presented to hospital arrival to the ER the patient has been afebrile patient was noticed to have significantly elevated white count of 23,000, patient did have CT of the soft tissue of the neck we did shows what collection towards the right of the C4 to C7 which measuring up to 3.7 X3.4X 1.7 cm, patient was started on Unasyn blood culture has been obtained and infectious disease was consulted for further management of antibiotic therapy Review of Systems Positive point has been mentioned in the HPI rest of the systems are negative Past Medical History Past Medical History: COPD, GERD/Reflux, Hearing Disorder / Deafness, Hyperlipidemia, Hypertension, Musculoskeletal Disorder, Osteoarthritis (OA), Renal Disease Additional Past Medical History / Comment(s): MASS OF KIDNEY, POSS CA. GOUT. BACK PAIN. INSOMNIA. History of Any Multi-Drug Resistant Organisms: None Reported Past Surgical History: Back Surgery, Orthopedic Surgery Additional Past Surgical History / Comment(s): LT CTR HAND, LT TOE. neck fusion 04/02 Past Anesthesia/Blood Transfusion Reactions: No Reported Reaction Past Psychological History: No Psychological Hx Reported Smoking Status: Former smoker Past Alcohol Use History: Heavy Additional Past Alcohol Use History / Comment(s): SMOKED 40 PLUS YEARS, 1 1/2 PPD, QUIT 2007. QUIT ETOH 2006-. Past Drug Use History: None Reported - Past Family History Mother Family Medical History: Cancer Father Family Medical History: Renal Disease Medications and Allergies Home Medications Medication Instructions Recorded Confirmed Type Atenolol [Tenormin] 50 mg PO QAM 12/28/17 04/06/20 History Cetirizine HCl [Zyrtec] 10 mg PO DAILY 12/28/17 04/06/20 History Gabapentin [Neurontin] 300 mg PO TID 12/28/17 04/06/20 History Hydrochlorothiazide [Hydrodiuril] 50 mg PO QAM 12/28/17 04/06/20 History Metabolism Support 250 mg PO DAILY 12/28/17 04/06/20 History Multivitamins, Thera [Multivitamin 1 tab PO DAILY 12/28/17 04/06/20 History (formulary)] Omeprazole [PriLOSEC] 20 mg PO AC-BRKFST 12/28/17 04/06/20 History Potassium Chloride ER [K-Dur 10] 10 meq PO BID 12/28/17 04/06/20 History Thiamine HCl [Vitamin B-1] 100 mg PO DAILY 12/28/17 04/06/20 History amLODIPine [Norvasc] 10 mg PO QAM 12/28/17 04/06/20 History traZODone HCL [Desyrel] 100 mg PO HS 12/28/17 04/06/20 History Allopurinol [Zyloprim] 100 mg PO BID 03/27/20 04/06/20 History Aspirin [Adult Low Dose Aspirin EC] 81 mg PO DAILY 03/27/20 04/06/20 History Montelukast [Singulair] 10 mg PO HS 03/27/20 04/06/20 History Baclofen 10 mg PO TID PRN #45 tab 04/02/20 04/06/20 Rx Albuterol Sulfate [Ventolin HFA] 1 - 2 puff INHALATION RT-Q6H PRN 04/06/20 04/06/20 History HYDROcodone/APAP 7.5-325MG [[place] 1 tab PO Q4HR PRN 04/06/20 04/06/20 History 7.5-325] Allergies Allergy/AdvReac Type Severity Reaction Status Date / Time strawberry Allergy Dyspnea Verified 04/06/20 09:13 Physical Exam Vitals: Vital Signs Temp Pulse Pulse Resp BP BP Pulse Ox 04/06/20 11:00 98.5 F 62 18 144/86 97 04/06/20 10:48 97.8 F 70 16 163/83 95 04/06/20 09:01 67 18 152/92 95 04/06/20 08:12 98 F 70 19 156/90 96 Intake and Output 04/05/20 04/06/20 04/06/20 22:59 06:59 14:59 Other: Voiding Method Toilet Weight 86.183 kg GENERAL DESCRIPTION: Middle-aged male lying in bed, no distress. No tachypnea or accessory muscle of respiration use. HEENT: Shows Pallor , no scleral icterus. Oral mucous membrane is dry. No pharyn geal erythema or thrush NECK: Trachea central, no swelling or redness posterior neck area however the patient did have bruising along the anterior neck incision LUNGS: Unlabored breathing. Clear to auscultation anteriorly. No wheeze or crackle. HEART: S1, S2, regular rate and rhythm. No loud murmur ABDOMEN: Soft, no tenderness , guarding or rigidity, no organomegaly EXTREMITIES: No edema of feet. SKIN: No rash, no masses palpable. NEUROLOGICAL: The patient is awake, alert, oriented x3, mood and affect normal. Results CBC & Chem 7: 04/06/20 08:28 04/06/20 08:58 Labs: Abnormal Lab Results - Last 24 Hours (Table) 04/06/20 04/06/20 Range/Units 08:28 08:58 WBC 23.5 H (3.8-10.6) k/uL Neutrophils # 19.3 H (1.3-7.7) k/uL Monocytes # 1.4 H (0-1.0) k/uL BUN 26 H (9-20) mg/dL Glucose 128 H (74-99) mg/dL Assessment and Plan Assessment: 1- patient is a 69-year-old male who is status post recent cervical spine surgery , presented to the hospital with increasing pain in the posterior neck area along with elevated white count and abnormal CT however the patient did not have any fever and does not look toxic with a question of possible postoperative seroma underlying infectious less likely but not entirely excluded (1) Leukocytosis Current Visit: Yes Status: Acute Code(s): D72.829 - ELEVATED WHITE BLOOD CELL COUNT, UNSPECIFIED SNOMED Code(s): 974179753 (2) Postoperative abscess Current Visit: Yes Status: Acute Code(s): T81.49XA - INFECTION FOLLOWING A PROCEDURE, OTHER SURGICAL SITE, INIT SNOMED Code(s): 166492170 (3) Postoperative seroma Current Visit: Yes Status: Acute Code(s): OUN8968 - SNOMED Code(s): 309509420 Plan: 1- blood cultures 2 and check a CMP and a sed rate 2- recommend CT-guided aspirate of the fluid we should be sent for Gram stain and culture 3- discontinue Unasyn 4- Vancomycin pharmacy to dose target trough of 15 while watching his kidney function and Vanco trough closely 5- cefepime 2 g every 12 hours We will follow on clinical condition and cultures to further adjust medication if needed Thank you for this consultation will follow this patient with you Time with Patient: Greater than 30
[2020-04-07] MEDS: MORPHINE SULFATE 2 MG/ML SYRINGE IVP PRN (03:42)
[2020-04-07 06:53] LABS: Glucose,Whole Blood 176 mg/dL (75-99)
[2020-04-07] MEDS: methylPREDNISolone SOD SUCCI 125 MG/2 ML VIAL IV SCH ×2 (07:32→20:33)
[2020-04-07] MEDS: CEFEPIME 2 GM in SODIUM CHLORIDE 0.9% 100 ML IVPB SCH ×2 (07:32→20:32)
[2020-04-07] MEDS: INSULIN ASPART (NovoLOG) 100 UNIT/ML VIAL SQ SCH ×4 (07:32→20:33)
[2020-04-07] MEDS: HYDROcodone/APAP 5-325MG 1 EACH TAB PO PRN ×2 (07:33→16:53)
[2020-04-07] MEDS: atenoloL 50 MG TAB PO SCH (07:33)
[2020-04-07] MEDS: allopurinoL 100 MG TAB PO SCH ×2 (07:33→20:32)
[2020-04-07] MEDS: MULTIVITAMINS, THERA 1 EACH TAB PO SCH (07:33)
[2020-04-07] MEDS: GABAPENTIN 300 MG CAP PO SCH ×3 (07:34→20:33)
[2020-04-07] MEDS: THIAMINE 100 MG TAB PO SCH (07:34)
[2020-04-07] MEDS: LORATADINE 10 MG TAB PO SCH (07:34)
[2020-04-07] MEDS: amLODIPine 10 MG TAB PO SCH (07:34)
[2020-04-07] MEDS: PANTOPRAZOLE 40 MG TABLET PO SCH (07:34)
[2020-04-07] MEDS: POTASSIUM CHLORIDE ER 10 MEQ TAB.ER.PRT PO SCH ×2 (07:34→20:32)
[2020-04-07] MEDS: ASPIRIN 81 MG PO SCH (07:34)
[2020-04-07] MEDS ORDERED: [UNRECOGNIZED DRUG - OTHER] PO SCH (09:00)
--- NOTE | 2020-04-07 09:15 | P.PN ---
Subjective Progress Note Date: 04/07/20 Principal diagnosis: Swelling around the surgical site at the anterior cervical spine; possible postoperative seroma, hematoma, or possible early abscess Patient is a very pleasant 69-year-old male well known to our service who is seen and examined for follow-up of his cervical spine. He is status post C4-5, C5-6, and C6-7 anterior cervical decompression and fusion with release of A1 natalee of the left ring finger trigger finger performed on 04/01/2020. He was discharged on 04/02/2020. He states over the weekend he began to have increased pain radiating from the shoulders down to the elbows bilaterally. He states he had difficulty lifting his arm for a couple coffee due to his pain. He feels his pain was not well controlled at home. He states he started having some difficulty with swallowing as well. He presented to the emergency department morning for further evaluation. He was given a dose of Solu-Medrol 125 mg. he was started on Solu-Medrol 60 mg every 12 hours yesterday. Overall, he feels significantly better as compared to prior to admittance. He states he does have some increased pain radiating over the trapezius shoulders while standing to urinate. He also states while getting out of bed today he did have increased pain radiating from the shoulders down the triceps to the elbows. Patient has been seen and examined by Dr. Lancaster in infectious disease. Currently waiting for blood cultures, CMP, and sed rate. Infectious disease is also recommend a CT-guided aspirate with fluid to be sent for Gram stain and culture. He was started on cefepime and vancomycin. Patient is being seen and examined by medicine for medical management. Patient does have a past medical history which includes hypertension and hyperlipidemia. Lab imaging does show elevated WBC at 23.5 and elevated C-reactive protein at 48.8. Objective - Vital Signs Vital signs: Vital Signs Temp 96.4 F L 04/07/20 07:21 Pulse 73 04/07/20 07:21 Resp 16 04/07/20 07:21 BP 167/79 04/07/20 07:21 Pulse Ox 96 04/07/20 07:21 Intake & Output 04/06/20 04/07/20 04/07/20 18:59 06:59 18:59 Intake Total 240 Balance 240 Weight 86.183 kg Intake: Oral 240 Other: Voiding Method Toilet Toilet Toilet # Voids 3 1 - Exam Physical exam: Patient is awake, alert, and oriented 3 Vital signs stable Good chest excursion with deep inspiration and expiration Full range of motion of the cervical spine with adequate flexion, extension, and bilateral rotation Psychiatric Nursing Assistant strength, thumb strength, interosseous strength, biceps strength, triceps strength, and shoulder strength positive sustained bilaterally Active range of motion bilateral upper extremities have difficulty Dressing over the left hand and wrist has been removed; incision site is clean, dry, intact with sutures remaining in place; no erythema, bruising, swelling, or obvious sign of infection surgical site Inspection of the surgical site does show bruising around the surgical site with some extension medially and laterally No pain with palpation around the surgical site or the anterior cervical spine Evidence of swelling around the surgical site which is somewhat firm to palpation - Labs CBC & Chem 7: 04/06/20 08:28 04/07/20 06:37 Labs: Abnormal Lab Results - Last 24 Hours (Table) 04/06/20 04/06/20 04/06/20 Range/Units 08:28 08:58 08:58 ESR 25 H (0-15) mm/hr BUN 26 H (9-20) mg/dL Glucose 128 H (74-99) mg/dL POC Glucose (mg/dL) (75-99) mg/dL C-Reactive Protein 48.8 H (<10.0) mg/L 04/07/20 Range/Units 06:50 ESR (0-15) mm/hr BUN (9-20) mg/dL Glucose (74-99) mg/dL POC Glucose (mg/dL) 176 H (75-99) mg/dL C-Reactive Protein (<10.0) mg/L - Imaging and Cardiology Pertinent studies: X-ray of the cervical spine taken on 04/06/2020: Plate, screws, and allograft bone graft remain in good alignment and position at C4-5, C5-6, and C6-7 with no evidence for fracture, loosening, or fatigue; C3-4 degenerative disc disease and spondylosis; prevertebral soft tissue thickening CT of the soft tissue of the neck taken on 04/06/2020: Perioperative air fluid collection towards the right of the C4-7 anterior cervical decompression and fusion located anterior to the right carotid space measuring 3.7 cm x 3.4 cm x 1.7 cm; continuous extension along the medial margin of the right SCM muscle to more superficial and fluid collection extending to the right paramedian mid to lower neck measuring 4.4 cm x 3.7 cm x 2.8 cm; findings concerning for early a bscess however given recent surgery further clinical correlation recommended for postoperative seroma Assessment and Plan Assessment: Assessment: Status post C4-5, C5-6, and C6-7 anterior cervical decompression and fusion with release of A1 natalee of the left ring finger trigger finger Swelling around the surgical site at the anterior cervical spine; possible postoperative seroma, hematoma, or possible early abscess Bilateral upper extremity radiculopathy C3-4 degenerative disc disease and spondylosis Leukocytosis Hypertension Hyperlipidemia (1) Neck swelling Current Visit: Yes Status: Acute Code(s): R22.1 - LOCALIZED SWELLING, MASS AND LUMP, NECK SNOMED Code(s): 739516906 (2) Leukocytosis Current Visit: Yes Status: Acute Code(s): D72.829 - ELEVATED WHITE BLOOD CELL COUNT, UNSPECIFIED SNOMED Code(s): 972583402 (3) Postoperative seroma Current Visit: Yes Status: Acute Code(s): VVB1355 - SNOMED Code(s): 923107482 (4) Degenerative cervical disc Current Visit: No Status: Acute Code(s): M50.30 - OTHER CERVICAL DISC DEGENERATION, UNSP CERVICAL REGION SNOMED Code(s): 98677166 (5) Hyperlipidemia Current Visit: No Status: Acute Code(s): E78.5 - HYPERLIPIDEMIA, UNSPECIFIED SNOMED Code(s): 43523302 (6) Hypertension Current Visit: No Status: Acute Code(s): I10 - ESSENTIAL (PRIMARY) HYPERTENSION SNOMED Code(s): 78806165 (7) Radiculopathy affecting upper extremity Current Visit: No Status: Acute Code(s): M54.10 - RADICULOPATHY, SITE UNSPECIFIED SNOMED Code(s): 02434373 (8) Status post cervical spinal fusion Current Visit: No Status: Acute Code(s): Z98.1 - ARTHRODESIS STATUS SNOMED Code(s): 6904791484785 (9) Trigger finger of left hand Current Visit: No Status: Acute Code(s): M65.30 - TRIGGER FINGER, UNSPECIFIED FINGER SNOMED Code(s): 693079014 Plan: Plan: 1. Patient has been discussed in detail with Dr. Bray. Imaging has been reviewed by Dr. Samson Bray and myself. Patient's physical exam findings have not changed as compared to yesterday. Patient does have some swelling around the surgical site along with some bruising. Patient is not experiencing any pain with palpation around the surgical site. Surgical site is somewhat firm to palpation. Patient is postoperative day #6. The patient does have an elevated WBC and an elevated CRP, but we do not feel the patient has an abscess at his surgical site. Patient may have a seroma or hematoma. Patient is not experiencing any fever or chills. His temperature has remained stable. Patient feels his symptoms have significantly improved since presenting to the emergency department that he has had intermittent exacerbation of the symptoms with activity since yesterday.. He states he is able to swallow without difficulty. His upper extremity radiculopathy has improved overall. He has not received any pain medication. He was given 1 dose of Solu-Medrol 125 mg IV in the emergency department and he was started on Solu-Medrol 60 mg IV every 12 hours. Patient has been seen and examined by Dr. Corazon rebollar in infectious disease who recommends CT-guided aspiration of the anterior right soft tissue of the neck with fluid to be sent for Gram stain and culture. Consultation has been placed for interventional radiology for the CT-guided aspiration. At this current time, we are not currently planning for acute surgical intervention at his cervical spine but we'll continue to monitor the patient's lab results and physical exam. We will wait for results from the CT-guided aspiration. Patient may continue with light activities in regards to his cervical spine. Dressing has been removed at the surgical site of the left trigger finger. Sutures remain intact. Incision remains dry with no erythema, purulence, or obvious sign of infection. Patient may keep the surgical site uncovered at this time. He should continue to avoid excessive activities of the left hand. Patient may continue with Terril 5 mg/325 mg 1 tab every 6 hours as needed for pain. We will also plan to change the patient's admits that is from observation to inpatient. 2. Patient to continue be seen and examined by Dr. Lancaster in infectious disease will continue with cefepime and vancomycin per his recommendations. Testing including blood culture, BMP, sed rate are pending. 3. Medicine will continue to follow the patient for medical management Time with Patient: Greater than 30 (Including obtaining history, physical examination, reviewing of imaging, and dictation.)
[2020-04-07 11:11] LABS: Prothrombin Time 10.3 sec (9.0-12.0)
[2020-04-07 11:39] LABS: Glucose,Whole Blood 123 mg/dL (75-99)
[2020-04-07] MEDS: VANCOMYCIN 1,500 MG in SODIUM CHLORIDE 0.9% 250 ML IVPB SCH (12:40)
[2020-04-07] MEDS ORDERED: HYDROcodone/APAP 7.5-325MG 1 EACH TAB PO PRN (13:58)
[2020-04-07] MEDS ORDERED: cloNIDine HCL 0.1 MG TAB PO PRN (14:00)
--- NOTE | 2020-04-07 14:48 | PN ---
PROGRESS NOTE DATE OF SERVICE: 04/07/2020 This 69-year-old gentleman who has swelling of the neck after recent cervical fusion surgery is being closely monitored at this time. Interventional radiology aspiration is being planned at this time. No chest pain. No palpitations. No fever. Infectious Disease following the patient closely. The patient is started on empiric antibiotics. White count is elevated 23.5. Past medical history reviewed. REVIEW OF SYSTEMS: Cardiovascular system: No angina or palpitations. RESPIRATORY: As mentioned earlier. GI: As mentioned earlier. Nervous system: As mentioned earlier. CURRENT MEDICATIONS: Reviewed and include: 1. [place] 5 mg q.6 p.r.n. 2. Ventolin. 3. Zyloprim. 4. Norvasc. 5. Aspirin. 6. Tenormin. 7. Lioresal. 8. Cefepime 2 g. 9. Neurontin. 10.HydroDIURIL. 11.Claritin. 12.Solu-Medrol. 13.Singulair. 14.Multivitamins. 15.Protonix. 16.K-Dur. 17.Desyrel. 18.Vancomycin IV. 19.Doses and root of necessitation reviewed. PHYSICAL EXAM: Patient is alert oriented x3. Pulse 73. Blood pressure 167/79. Respirations 16. Temperature 96.4, pulse ox 96% on room air. HEENT: Conjunctivae normal. Oral mucosa moist. Neck is status post recent surgery. Some swelling and some ecchymotic areas also present. Cardiovascular system: S1, S2 muffled. Respiration: Breath sounds diminished in the bases. A few scattered rhonchi. No crackles. ABDOMEN: Soft, nontender. LEGS are no edema. No swelling. NERVOUS SYSTEM: No focal deficits. LAB STUDIES: WBC 23.5, sodium 138. ASSESSMENT: 1. Swelling of the neck and anterior cervical spine, status post recent surgery. Rule out seroma hematoma versus early abscess. 2. Recent cervical fusion disc surgery on 03/22/2020. 3. Increased WBC possibly secondary to infection or reactive. 4. Bilateral upper extremity radiculopathy. 5. Uncontrolled hypertension. 6. Hyperlipidemia. 7. Chronic obstructive pulmonary disease. 8. Gastroesophageal reflux disease. 9. Hard of hearing. 10.Degenerative joint disease. 11.History of renal mass. 12.Cervical neck pain. 13.Previous history of smoking. 14.History of heavy alcohol abuse. 15.Deep vein thrombosis prophylaxis. RECOMMENDATIONS AND DISCUSSION: In this 69-year-old gentleman who presented with multiple complex medical issues, we will monitor the patient closely, continue the current medications, and symptomatic treatment. Otherwise, at this time I recommend to continue the IV antibiotics as recommended by Infectious Disease. Other than that, I would also recommend Ativan and steroids have been noted. I will also recommend to add clonidine to the current regimen. Continue to monitor. The prognosis guarded because of multiple complex medical issues. Closely follow with with Orthopedic surgery, Infectious Disease. Further recommendations to follow. Repeat labs also have been ordered to monitor CBC. MMODL / IJN: [id number] /
--- NOTE | 2020-04-07 15:16 | PN ---
PROGRESS NOTE DATE OF SERVICE: 04/07/2020 REASON FOR FOLLOWUP: Abnormal CT and a question of seroma versus an abscess. INTERVAL HISTORY: Patient is currently afebrile. The patient is breathing comfortably. Overall pain and discomfort to the posterior neck and upper shoulder area has improved. Denies having any chest pain or cough. No abdominal pain. No diarrhea. PHYSICAL EXAMINATION: Blood pressure 137/79 with a pulse of 73, temperature 96.4. He is 96% on room air. General description: The is an elderly male lying in bed in no distress. Respiratory system: Unlabored breathing. Clear to auscultation anteriorly. Heart S1, S2. Regular rate and rhythm. Abdomen soft, no tenderness. LABS: No new labs have been obtained today. DIAGNOSTIC IMPRESSION AND PLAN: Patient admitted to the hospital with neck pain, elevated white count with recent surgery, abnormal CT with question of possible postoperative seroma versus abscess. Clinically not behaving as an abscess. Awaiting CT-guided drainage. Continue cefepime and vancomycin. Monitor clinical course closely. MMODL / IJN: [id number] / MTDJose Luis
[2020-04-07] MEDS: cloNIDine HCL 0.1 MG TAB PO SCH ×2 (16:53→20:32)
--- NOTE | 2020-04-07 17:01 | US ---
EXAMINATION TYPE: US guided soft tissue drainage DATE OF EXAM: 04/07/2020 COMPARISON: CT neck 04/06/2020 HISTORY: Status post cervical fusion approximately one week ago. Right neck fluid collection seen on CT next comparison. PROCEDURE: Preliminary ultrasound imaging demonstrated fluid collection with mobile debris insinuating between t he right thyroid gland and major vasculature. The procedure was discussed with the patient. The risks, complications, benefits, and alternatives we re discussed and any questions were answered. Informed consent was obtained. The patient was placed supine on the ultrasound table and prepped and draped in the usual sterile fas hion. Ultrasound using sterile technique. Lidocaine used for local anesthesia. A 7 cm 5 [place] one-st ep centesis catheter was advanced into the fluid collection with continuous ultrasound guidance. 20 m L of dark red blood was aspirated from the fluid collection. Aspirate specimen submitted to microbiol pancho. Following the procedure hemostasis achieved. No immediate complication. Post procedure ultrasound imaging demonstrated decreased size of fluid collection adjacent to the rig ht thyroid gland status post aspiration. IMPRESSION: Status post ultrasound-guided aspiration of right neck fluid collection, with aspiration of 20 mL of dark red blood. Microbiology pending.
[2020-04-07 17:25] LABS: Glucose,Whole Blood 140 mg/dL (75-99)
[2020-04-07] MEDS: LORazepam 1 MG TAB PO SCH (18:14)
[2020-04-07] MEDS: SODIUM CHLORIDE 0.9% 1,000 ML IV ONE (19:07)
[2020-04-07 20:09] LABS: Glucose,Whole Blood 151 mg/dL (75-99)
[2020-04-07] MEDS: traZODone HCL 100 MG TAB PO SCH (20:32)
[2020-04-07] MEDS: MONTELUKAST 10 MG TAB PO SCH (20:33)
[2020-04-08] MEDS: LORazepam 1 MG TAB PO SCH ×3 (00:03→12:16)
[2020-04-08] MEDS: VANCOMYCIN 1,500 MG in SODIUM CHLORIDE 0.9% 250 ML IVPB SCH ×2 (00:03→12:22)
[2020-04-08 01:21] VITALS: RESP 17
[2020-04-08 06:38] LABS: Glucose,Whole Blood 156 mg/dL (75-99)
[2020-04-08 07:01] VITALS: BP 145/67; PULSE 59; TEMP 98.3
[2020-04-08] MEDS: CEFEPIME 2 GM in SODIUM CHLORIDE 0.9% 100 ML IVPB SCH (07:36)
[2020-04-08] MEDS: INSULIN ASPART (NovoLOG) 100 UNIT/ML VIAL SQ SCH ×2 (07:36→12:20)
[2020-04-08] MEDS: POTASSIUM CHLORIDE ER 10 MEQ TAB.ER.PRT PO SCH (07:37)
[2020-04-08] MEDS: GABAPENTIN 300 MG CAP PO SCH (07:37)
[2020-04-08] MEDS: cloNIDine HCL 0.1 MG TAB PO SCH (07:37)
[2020-04-08] MEDS: ASPIRIN 81 MG PO SCH (07:37)
[2020-04-08] MEDS: amLODIPine 10 MG TAB PO SCH (07:37)
[2020-04-08] MEDS: MULTIVITAMINS, THERA 1 EACH TAB PO SCH (07:38)
[2020-04-08] MEDS: LORATADINE 10 MG TAB PO SCH (07:38)
[2020-04-08] MEDS: allopurinoL 100 MG TAB PO SCH (07:38)
[2020-04-08] MEDS: atenoloL 50 MG TAB PO SCH (07:38)
[2020-04-08] MEDS: PANTOPRAZOLE 40 MG TABLET PO SCH (07:38)
[2020-04-08] MEDS: methylPREDNISolone SOD SUCCI 125 MG/2 ML VIAL IV SCH (07:38)
[2020-04-08] MEDS: THIAMINE 100 MG TAB PO SCH (07:38)
[2020-04-08 08:42] LABS: Basophils % (A) 0 %; Eosinophils % (A) 0 %; HCT 40.7 % (39.0-53.0); HGB 13.3 gm/dL (13.0-17.5); Lymphocytes # (A) 1.5 k/uL (1.0-4.8); Lymphocytes % (A) 6 %; MCH 31.2 pg (25.0-35.0); MCHC 32.7 g/dL (31.0-37.0); MCV 95.5 fL (80.0-100.0); Mean Platelet Volume 8.3; Monocytes # (A) 1.1 k/uL (0-1.0); Monocytes % (A) 5 %; Neutrophils # (A) 21.2 k/uL (1.3-7.7); Neutrophils % (A) 89 %; Platelet Count 402 k/uL (150-450); RBC 4.26 m/uL (4.30-5.90); RDW 13.5 % (11.5-15.5)
[2020-04-08 08:47] LABS: Calcium 9.5 mg/dL (8.4-10.2); Potassium 3.5 mmol/L (3.5-5.1)
--- NOTE | 2020-04-08 09:44 | P.DS ---
Providers Date of admission: 04/06/20 10:43 Expected date of discharge: 04/08/20 Attending physician: Bozena Bray Consults: 04/06/20 10:29 Consult Physician Urgent Consulting Provider: Malena Lancaster Consult Reason/Comments: Possible abscess neck Do you want consulting provider notified?: Yes 04/06/20 12:02 Consult Physician Routine Consulting Provider: Marco A Dill Consult Reason/Comments: Medical Management Do you want consulting provider notified?: Yes Primary care physician: Khanh Briggs - Discharge Diagnosis(es) (1) Neck swelling Current Visit: Yes Status: Acute (2) Leukocytosis Current Visit: Yes Status: Acute (3) Postoperative seroma Current Visit: Yes Status: Acute (4) Degenerative cervical disc Current Visit: No Status: Acute (5) Hyperlipidemia Current Visit: No Status: Acute (6) Hypertension Current Visit: No Status: Acute (7) Radiculopathy affecting upper extremity Current Visit: No Status: Acute (8) Status post cervical spinal fusion Current Visit: No Status: Acute (9) Trigger finger of left hand Current Visit: No Status: Acute Hospital Course: This is a pleasant 69-year-old who presented with increased pain in the bilateral upper extremities with swelling of the cervical spine. There is some concern for postoperative seroma or early abscess of the surgical site. He is status post C4-5, C5-6, and C6-7 anterior cervical decompression and fusion with release of A1 natalee of the left ring finger trigger finger performed on 04/01/2020. Since his admission his symptoms have been improving. He is been on Solu-Medrol. He is not currently expressing any upper extremity radiculopathy bilaterally. He feels his pain is well-controlled. He underwent a CT-guided aspiration of the soft tissue of the neck yesterday in which 20 mL's of dark red blood was removed. Fluid was sent to lab for culture and Gram stain. Those results are pending. Patient feels good and feels he is ready for discharge home. He denies nausea, vomiting, fever, or chills. He is been afebrile and his entire admission. He feels his symptoms are well controlled. Clinically he does not appear to have an abscess or infection at his cervical spine. He does continue to be seen and examined by Dr. Lancaster and infectious disease. He's been on vancomycin and cefepime. We did discuss he would need to be cleared by infectious disease prior to discharge home. Patient not currently experiencing any pain in his cervical spine. He currently denies upper extremity weakness radiculopathy bilaterally. Condition on day of discharge stable. Patient will be discharged home. Patient is eating and voiding freely without difficulty. Patient may shower without a dressing intact at this time. Patient may continue with Garber 7.5 mg/325 mg as previously prescribed as needed control of symptoms. He is also given a prescription for prednisone 10 mg taper. He should take this tapered to completion. He should avoid anti-inflamm atories over the next 4 weeks postoperatively. Patient should refrain from driving until at least after their first follow-up appointment in the office. Patient should avoid excessive neck flexion, extension, rotation, and lateral sidebending; no overhead lifting; no lifting greater than 10 pounds. Patient's past medical history includes hypertension and hyperlipidemia. Physical Exam on day of discharge: Patient is awake, alert, and oriented 3 Vital signs stable Good chest excursion with deep inspiration and expiration Full range of motion of the cervical spine with adequate flexion, extension, and bilateral rotation Documentation Billing Clerk strength, thumb strength, interosseous strength, biceps strength, triceps strength, and shoulder strength positive sustained bilaterally Active range of motion bilateral upper extremities have difficulty Dressing over the left hand and wrist has been removed; incision site is clean, dry, intact with sutures remaining in place; no erythema, bruising, swelling, or obvious sign of infection surgical site Inspection of the surgical site does show bruising around the surgical site with some extension medially and laterally No pain with palpation around the surgical site or the anterior cervical spine Evidence of swelling around the surgical site which is somewhat firm to palpation but has had some improvement status post CT-guided aspiration Patient Condition at Discharge: Stable Plan - Discharge Summary New Discharge Prescriptions: New predniSONE See Taper PO DIRECTED #24 tab No Action amLODIPine [Norvasc] 10 mg PO QAM atenoloL [Tenormin] 50 mg PO QAM Cetirizine HCl [Zyrtec] 10 mg PO DAILY Gabapentin [Neurontin] 300 mg PO TID hydroCHLOROthiazide [Hydrodiuril] 50 mg PO QAM Metabolism Support 250 mg PO DAILY Multivitamins, Thera [Multivitamin (formulary)] 1 tab PO DAILY Omeprazole [PriLOSEC] 20 mg PO AC-BRKFST Potassium Chloride ER [K-Dur 10] 10 meq PO BID Thiamine HCl [Vitamin B-1] 100 mg PO DAILY traZODone HCL [Desyrel] 100 mg PO HS Montelukast [Singulair] 10 mg PO HS Aspirin [Adult Low Dose Aspirin EC] 81 mg PO DAILY allopurinoL [Zyloprim] 100 mg PO BID Baclofen 10 mg PO TID PRN #45 tab PRN Reason: Spasms Albuterol Sulfate [Ventolin HFA] 1 - 2 puff INHALATION RT-Q6H PRN PRN Reason: Shortness Of Breath HYDROcodone/APAP 7.5-325MG [Garber 7.5-325] 1 tab PO Q4HR PRN PRN Reason: Pain Discharge Medication List Cetirizine HCl [Zyrtec] 10 mg PO DAILY 12/28/17 [History] Gabapentin [Neurontin] 300 mg PO TID 12/28/17 [History] Metabolism Support 250 mg PO DAILY 12/28/17 [History] Multivitamins, Thera [Multivitamin (formulary)] 1 tab PO DAILY 12/28/17 [History] Omeprazole [PriLOSEC] 20 mg PO AC-BRKFST 12/28/17 [History] Potassium Chloride ER [K-Dur 10] 10 meq PO BID 12/28/17 [History] Thiamine HCl [Vitamin B-1] 100 mg PO DAILY 12/28/17 [History] amLODIPine [Norvasc] 10 mg PO QAM 12/28/17 [History] atenoloL [Tenormin] 50 mg PO QAM 12/28/17 [History] hydroCHLOROthiazide [Hydrodiuril] 50 mg PO QAM 12/28/17 [History] traZODone HCL [Desyrel] 100 mg PO HS 12/28/17 [History] Aspirin [Adult Low Dose Aspirin EC] 81 mg PO DAILY 03/27/20 [History] Montelukast [Singulair] 10 mg PO HS 03/27/20 [History] allopurinoL [Zyloprim] 100 mg PO BID 03/27/20 [History] Baclofen 10 mg PO TID PRN #45 tab 04/02/20 [Rx] Albuterol Sulfate [Ventolin HFA] 1 - 2 puff INHALATION RT-Q6H PRN 04/06/20 [History] HYDROcodone/APAP 7.5-325MG [Garber 7.5-325] 1 tab PO Q4HR PRN 04/06/20 [History] predniSONE See Taper PO DIRECTED #24 tab 04/08/20 [Rx] Follow up Appointment(s)/Referral(s): Khanh Briggs MD [Primary Care Provider] - 1-2 days Farhat Polanco PAC [PHYSICIAN SOCK TURNER] - 1 Week (Patient may follow-up with Farhat Polanco PA-C or Dr. Samson Bray at [facility] this coming 04/13/2020 or 04/14/2020, following discharge. ) Activity/Diet/Wound Care/Special Instructions: 1. Patient may shower without a dressing intact. 2. Patient should refrain from driving until at least after their first follow- up appointment in the office. 3. Patient should avoid excessive cervical flexion, extension, rotation, and side bending; Avoid overhead lifting; no lifting greater than 10 pounds 4. Keep incision at the left hand clean and dry; Avoid excessive activity with the left hand56. Take medications as prescribed 5. Take medications as prescribed 6. Do not soak in tub Discharge Disposition: HOME SELF-CARE
[2020-04-08] MEDS ORDERED: VANCOMYCIN TROUGH DUE 1 EACH MISC MISCELLANE ONE (11:00)
[2020-04-08] MEDS: HYDROcodone/APAP 5-325MG 1 EACH TAB PO PRN (12:18)
[2020-04-08 12:25] LABS: Glucose,Whole Blood 157 mg/dL (75-99)
--- NOTE | 2020-04-08 13:16 | P.PN ---
Progress Note - Text Progress Note Date: 04/08/20 The patient is seen and examined at bedside today. His neck incision site looks quite clear. There is no erythema there is some mild swelling right around the incision itself which appears to be some small hematoma. There is no tension at his neck. His arms are moving very well and he has full active and passive range of motion. He has good strength in his bilateral upper extremities. The aspiration from yesterday had no growth after 24 hours. He is shown no organisms on Gram stain. He continues to make good improvement with conservative treatment and it is okay from orthopedic standpoint for him to go home today if he is clear from infectious disease standpoint. We'll plan to follow him up closely.
[2020-04-08] MEDS ORDERED: SODIUM CHLORIDE 0.9% 1,000 ML IV SCH (14:30)
--- NOTE | 2020-04-08 15:23 | PN ---
PROGRESS NOTE DATE OF SERVICE: 04/08/2020 REASON FOR FOLLOWUP: Abnormal CT of the neck with a question of seroma versus abscess. INTERVAL HISTORY: The patient is currently afebrile. The patient is status post ultrasound-guided drainage of the anterior neck collection, which was mostly bloody. No purulence has been described by the radiologist. The patient is afebrile this morning and is feeling better, wants to go home. No chest pain, shortness of breath or cough. No abdominal pain or diarrhea. PHYSICAL EXAMINATION: Blood pressure 145/67, pulse of 59, temperature 98.3. He is 96% on room air. General description is an elderly male up in the room in no distress. HEENT EXAMINATION: The anterior neck area bruise has decreased in size. LUNGS: Unlabored breathing. Clear to auscultation anteriorly. HEART: S1, S2. Regular rate and rhythm. ABDOMEN: Soft. No tenderness. LABS: His culture remains negative. The cultures obtained by the radiologist are so far pending. DIAGNOSTIC IMPRESSION AND PLAN: Patient admitted to hospital with neck pain with recent surgery, with abnormal CT,high clinical suspicion for possible postoperative seroma. Clinically not behaving as an abscess, with no fever, and cultures negative. Patient has already been cleared for discharge by Orthopedics. Recommend no antibiotics on discharge and close outpatient followup. MMODL / IJN: [id number] /
--- NOTE | 2020-04-08 16:59 | PN ---
PROGRESS NOTE DATE OF SERVICE: 04/08/2020 This is a 69-year-old gentleman who was admitted with swelling of the neck and anterior cervical fusion 03/22/2020. He has already had a fine-needle aspiration biopsy today. The cultures are pending at this time. Patient is on broad-spectrum IV antibiotics. Other labs are he white count is also elevated with a creatinine 1.28, yesterday the creatinine was 1.06. PAST MEDICAL HISTORY: Reviewed. REVIEW OF SYSTEMS: CARDIOVASCULAR SYSTEM: No angina. RESPIRATORY: As mentioned earlier. GI: As mentioned earlier. : No dysuria. NERVOUS SYSTEM: No numbness or weakness. The patient also started on empiric antibiotics. CURRENT MEDICATIONS: Are reviewed and include [place], Ventolin, Zyloprim, Norvasc, aspirin, Tenormin, Lioresal, Cefepime, Catapres, Neurontin, HydroDIURIL, NovoLog, Claritin, Ativan, Solu- Medrol, Protonix, K-Dur, vitamin B1, Desyrel, vancomycin, doses reviewed. PHYSICAL EXAM: Patient is alert, oriented x3. Pulse is 59, blood pressure 145/60, respirations 17, temperature 98.3, pulse ox 98% on room air. Conjunctivae normal. Oral mucosa moist. Neck is no jugular venous distention. No lymph node enlargement. CARDIOVASCULAR SYSTEM: S1, S2. RESPIRATION: Breath sounds diminished at the bases, a few scattered rhonchi. ABDOMEN: Soft, nontender. NERVOUS SYSTEM: No focal deficits. LEGS: Some swelling present. LABS: WBC 24, creatinine is 1.28. ASSESSMENT: 1. Swelling of the neck and anterior cervical spine, status post recent surgery, possibly seroma, hematoma versus early abscess. 2. Recent cervical fusion surgery 03/22/2020. 3. Mild acute renal failure possibly acute tubular necrosis with prerenal failure. 4. Increased WBC possibly secondary infection or reactive. 5. Bilateral upper extremity radiculopathy history. 6. Uncontrolled hypertension. 7. Hyperlipidemia. 8. Chronic obstructive pulmonary disease. 9. Gastroesophageal reflux disease. 10.Hard of hearing. 11.DJD. 12.History of renal mass. 13.History of cervical neck pain. 14.Previous history of smoking. 15.History of alcohol abuse. 16.DVT prophylaxis. RECOMMENDATION: Recommend to continue current management and symptomatic treatment. Blood pressure is better controlled at this time. I recommend to continue with clonidine and other medications. I would also recommend a short course of IV fluids, avoid any nephrotoxic medications and will monitor the creatinine closely. Continue with steroids. Continue the rest of medications. Await cultures. Follow closely with Orthopedic Surgery and Infectious Disease. Further recommendations to follow. HOLGER / CEDRIC: [id number] /
[2020-04-08] MEDS ORDERED: VANCOMYCIN 1,500 MG in SODIUM CHLORIDE 0.9% 250 ML IVPB SCH (21:00)
== END 2020-04-08 16:45 | disposition home or self-care (01) | DRG 919 ==
LOC: EC 08:09 → 1SOBS 10:43 → OBSVTOIN 10:43 → 4SSUR 04-07 14:17
PROVIDERS: ADMIT Orthopaedic Surgery Orthopaedic Surgery of the Spine; ATTEND Orthopaedic Surgery Orthopaedic Surgery of the Spine
PROC: 0J943ZX Drainage of Right Neck Subcutaneous Tissue and Fascia, Percutaneous Approach, Diagnostic (ICD-10-PCS; principal; 2020-04-07)
DX: M96.842 Postprocedural seroma of a musculoskeletal structure following a musculoskeletal system procedure (principal); N17.0 Acute kidney failure with tubular necrosis; C64.9 Malignant neoplasm of unspecified kidney, except renal pelvis; L02.91 Cutaneous abscess, unspecified; Z11.59 Encounter for screening for other viral diseases; J44.9 Chronic obstructive pulmonary disease, unspecified; K21.9 Gastro-esophageal reflux disease without esophagitis; I10 Essential (primary) hypertension; H91.90 Unspecified hearing loss, unspecified ear; E78.5 Hyperlipidemia, unspecified; M10.9 Gout, unspecified; G47.00 Insomnia, unspecified; M19.90 Unspecified osteoarthritis, unspecified site; R13.10 Dysphagia, unspecified; M47.812 Spondylosis without myelopathy or radiculopathy, cervical region; M50.11 Cervical disc disorder with radiculopathy, high cervical region; G89.29 Other chronic pain; F10.11 Alcohol abuse, in remission; M65.342 Trigger finger, left ring finger; Z79.899 Other long term (current) drug therapy; Z79.82 Long term (current) use of aspirin; Z98.890 Other specified postprocedural states; Z87.891 Personal history of nicotine dependence; Z98.1 Arthrodesis status; Z91.018 Allergy to other foods; Z80.9 Family history of malignant neoplasm, unspecified
CPT/HCPCS: 10030; 36415; 70491; 72040; 76942; 80048; 80053; 80202; 82565; 83605; 85025; 85610; 85652; 86140; 87040; 87070; 87075; 87205; 88173; 88305; 96374; 99285

== ENCOUNTER → 2020-05-21 | Outpatient (CLI) | payer BC, MEDICARE ==
[2020-05-21 08:31] LABS: Appearance,Urine Clear (Clear); Bilirubin,Urine Negative (Negative); Blood,Urine Negative (Negative); Color,Urine Yellow; Glucose,Urine (UA) Negative (Negative); Ketones,Urine Negative (Negative); Leukocyte Esterase,Urine Negative (Negative); Nitrite,Urine Negative (Negative); PH, Urine 5.5 (5.0-8.0); Protein,Urine Negative (Negative); Specific Gravity,Urine 1.009 (1.001-1.035); Urobilinogen,Urine <2.0 mg/dL (<2.0)
[2020-05-21 08:46] LABS: Basophils # (A) 0.1 k/uL (0-0.2); Basophils % (A) 0 %; Eosinophils # (A) 0.2 k/uL (0-0.7); Eosinophils % (A) 2 %; HCT 40.5 % (39.0-53.0); HGB 12.9 gm/dL (13.0-17.5); Lymphocytes # (A) 2.2 k/uL (1.0-4.8); Lymphocytes % (A) 18 %; MCH 29.6 pg (25.0-35.0); MCHC 31.9 g/dL (31.0-37.0); MCV 92.7 fL (80.0-100.0); Monocytes # (A) 0.9 k/uL (0-1.0); Monocytes % (A) 7 %; Neutrophils # (A) 8.7 k/uL (1.3-7.7); Neutrophils % (A) 70 %; Platelet Count 330 k/uL (150-450); RBC 4.37 m/uL (4.30-5.90); WBC 12.4 k/uL (3.8-10.6)
[2020-05-21 10:35] LABS: Protein/Creatinine Ratio,Urine 0.128
[2020-05-21 16:21] LABS: % Iron Saturation 11.9 (15.00-50.00); African American GFR (CKD) 58.2 (60.0-200.0); Anion Gap 9.3 mmol/L (4.00-12.00); BUN/Creat Ratio 7.86 Ratio (12.00-20.00); Calcium 9.7 mg/dL (8.7-10.3); Carbon Dioxide 29.7 mmol/L (21.6-31.8); Non-African American GFR(CKD) 50.2 (60.0-200.0); Potassium 3.6 mmol/L (3.5-5.5); Uric Acid 4.6 mg/dL (3.7-8.7)
[2020-05-21 16:29] LABS: Ferritin 31.3 ng/mL (22.0-322.0)
== END | disposition home or self-care (01) ==
LOC: LABWHC1 08:03
PROVIDERS: ATTEND Nurse Practitioner Family
DX: N18.3 Chronic kidney disease, stage 3 (moderate) (principal); N39.0 Urinary tract infection, site not specified; M10.9 Gout, unspecified; E79.0 Hyperuricemia without signs of inflammatory arthritis and tophaceous disease; N25.81 Secondary hyperparathyroidism of renal origin; D63.1 Anemia in chronic kidney disease; R80.9 Proteinuria, unspecified
CPT/HCPCS: 36415; 80048; 81003; 82570; 82728; 83540; 83550; 83970; 84156; 84550; 85025